=== PATIENT | male | born 1965 | race Caucasian/White ===

== ENCOUNTER 2023-06-17 14:38 | Inpatient (IN) | payer BC ==
[~2023-06-17] VITALS: Ht 172.7 cm; Wt 54.0 kg
[2023-06-17] VITALS (9 sets, daily range): BP systolic 98–114; BP diastolic 58–69; PULSE 88–115; RESP 16–27; TEMP 98.8; O2SAT 77–98
[~2023-06-17 14:38] MED LIST: rocuronium 10mg/ml inj IV ONE
[2023-06-17] MEDS: vancomycin/NS 1 GM ADD-VANTAGE 250 ML IV ONE (14:50)
[2023-06-17] MEDS: CefTRIAXone 2gm/D5W 50ml BAG 50 ML IV ONE (14:50)
[2023-06-17] MEDS: piperacillin/tazo 3.375gm/50ml 50 ML IV ONE (14:50)
[2023-06-17] MEDS: propofol 1000mg/100ml bottle 100 ML IV SCH ×2 (14:51→17:41)
[2023-06-17] MEDS: amiodarone/D5 360MG/200ML BAG 200 ML IV SCH (14:53)
[2023-06-17 15:08] LABS: BASOPHILS # (AUTO) 0.1 X10'3 (0-0.2); BASOPHILS % (AUTO) 0.3 % (0-1); EOSINOPHILS % (AUTO) 0.1 % (0-6); HEMATOCRIT 34.6 % (42.0-52.0); LYMPHOCYTES # (AUTO) 1.4 X10'3 (1.1-4.8); LYMPHOCYTES % (AUTO) 4.7 % (21-51); MEAN CORPUSCULAR HEMOGLOBIN 31.2 PG (27.0-31.0); MEAN CORPUSCULAR HGB CONC 31.8 g/dL (33.0-36.5); MEAN CORPUSCULAR VOLUME 97.8 FL (78-98); MEAN PLATELET VOLUME 8.2 FL (7.4-10.4); MONOCYTES # (AUTO) 2.1 X10'3 (0-0.9); MONOCYTES % (AUTO) 6.7 % (2-12); NEUTROPHILS # (AUTO) 26.9 X10'3 (1.8-7.7); NEUTROPHILS % (AUTO) 88.2 % (42-75); PLATELET COUNT 294 X10'3 (140-440); RED BLOOD COUNT 3.53 X10'6 (4.70-6.10); RED CELL DISTRIBUTION WIDTH 14.9 % (11.5-14.5)
[2023-06-17 15:13] LABS: WHITE BLOOD COUNT 30.5 X10'3 (4.5-11.0)
[2023-06-17 15:17] LABS: ABG BASE EXCESS -4.4 mmol/L (-2.0-2.0); ABG HCO3 23.3 mmol/L (22.0-26.0); ABG OXYGEN SATURATION 98.4 % (94-97); ABG PCO2 (T) 54.7 mmHg (35.0-48.0); ABG PH (T) 7.247 (7.340-7.440); ABG PO2 (T) 137.5 mmHg (75.0-100.0); ALLEN'S TEST POSITIVE; FCOHb 0.3 % (0.0-3.9); FHHb 1.6 % (0.0-5.0); FMetHb 0.6 % (0.0-1.5); FO2Hb 97.5 % (94-97); MODE VENT - AC; PEEP 10 cm H2O; RESPIRATORY RATE 16 b/min; TIDAL VOLUME 450 mL; TOTAL HEMOGLOBIN 11.8 G/dl (14.0-17.9)
[2023-06-17] MEDS ORDERED: propofol (Diprivan) 10mg/ml 100ml bottle IV ONE (15:21)
[2023-06-17] MEDS ORDERED: diltiazem 5mg/ml 5ml inj. IV ONE (15:21)
[2023-06-17 15:25] LABS: ALANINE AMINOTRANSFERASE 16 U/L (12-78); ALBUMIN 1.9 G/DL (3.4-5.0); ALBUMIN/GLOBULIN RATIO 0.4 (1.1-1.5); ALKALINE PHOSPHATASE 154 IU/L (46-116); ANION GAP 10 (8-16); ASPARTATE AMINO TRANSFERASE 24 U/L (10-37); BILIRUBIN,TOTAL 0.3 MG/DL (0.1-1.0); BLOOD UREA NITROGEN 65 MG/DL (7-18); BUN/CREATININE RATIO 16.6 (10.0-20.0); CALCIUM 8.3 MG/DL (8.5-10.1); CHLORIDE 103 MMOL/L (99-107); CREATININE 3.91 MG/DL (0.60-1.10); GLUCOSE 368 MG/DL (70-104); POTASSIUM 3.5 MMOL/L (3.5-5.1); SODIUM 140 MMOL/L (135-145); TOTAL PROTEIN 6.5 G/DL (6.4-8.2); eCRCL 17 ML/MIN; eGFR 16 ML/MIN
[2023-06-17 15:34] LABS: PRO BRAIN NATRIURETIC PEPTIDE 3350 PG/ML (0-125); TRIGLYCERIDES 137 MG/DL (20-135)
[2023-06-17 15:45] LABS: PLATELET ESTIMATE NORMAL; TOTAL CELLS COUNTED 100
[2023-06-17 15:46] LABS: POIKILOCYTOSIS FEW
[2023-06-17] MEDS: normal saline 1000ML IV soln IVB ONE ×2 (16:35→18:25)
[2023-06-17 16:36] LABS: BILIRUBIN,URINE NEGATIVE (Neg); CLARITY,URINE TURBID (Clear); COLOR,URINE YELLOW (Yellow); GLUCOSE, URINE NEGATIVE (Neg); KETONES,URINE NEGATIVE (Neg); LEUKOCYTE ESTERASE ,URINE LARGE (Neg); NITRITES, URINE NEGATIVE (Neg); OCCULT BLOOD,URINE MODERATE (Neg); PROTEIN,URINE >=300 mg/dl (Neg); UROBILINOGEN,URINE 0.2 E.U/dL (0.2-1.0)
[2023-06-17 16:37] LABS: MAGNESIUM 1.6 MG/DL (1.5-2.4)
[2023-06-17 16:39] LABS: UA COLLECTION TYPE FOLEY CATH
[2023-06-17 16:58] LABS: WBC,URINE TNTC /HPF (0-4)
[2023-06-17 17:04] LABS: YEAST MANY /HPF (NEGATIVE)
[2023-06-17 17:07] LABS: BACTERIA,URINE 4+ /HPF (Neg)
[2023-06-17 17:08] LABS: RBC,URINE 0-2 /HPF (0-2)
[2023-06-17 17:11] LABS: WBC CLUMPS,URINE MANY /HPF (NEGATIVE)
[2023-06-17 17:12] LABS: COARSE GRANULAR CAST 0-3 /LPF (NEGATIVE)
[2023-06-17 17:13] LABS: SQUAMOUS EPITHELIAL CELL,UR FEW /LPF (FEW); TRANSITIONAL EPI CELLS,URINE MODERATE /HPF
[2023-06-17] MEDS: NORepinephrine 8mg/ 250ml NS 250 ML IV ONE (17:42)
[2023-06-17] MEDS: NORepinephrine 8mg/ 250ml NS 250 ML IV SCH (17:42)
[2023-06-17] MEDS: normal saline 1000ml 1,000 ML IV SCH ×2 (18:35→19:53)
[2023-06-17] MEDS ORDERED: sodium phosphate inj. 30 MMOL in dextrose 5%-water 250 ML IV PRN (19:35)
[2023-06-17] MEDS ORDERED: morphine 4 MG/ML inj SYRINge IV PRN (19:35)
[2023-06-17] MEDS ORDERED: morphine 2 MG/ML inj. syringe IV PRN (19:35)
[2023-06-17] MEDS ORDERED: magnesium hydroxide 30ml (MOM) UD suspension PO PRN (19:35)
[2023-06-17] MEDS ORDERED: ipratropium/albuterol 3ml nebule NEB PRN (19:35)
[2023-06-17] MEDS ORDERED: Neutra Phos packet PO PRN (19:35)
[2023-06-17] MEDS ORDERED: acetaminophen 325mg tablet PO PRN ×2 (19:35)
[2023-06-17] MEDS ORDERED: sodium phosphate inj. 15 MMOL in dextrose 5%-water 250 ML IV PRN (19:35)
[2023-06-17] MEDS: WATER IV ONE (20:12)
[2023-06-17] MEDS: DEXTROSE 5% IV ONE (20:12)
[2023-06-17] MEDS: VORICONAZOLE IV ONE (20:12)
[2023-06-17] MEDS: cefepime 2g/NS 100ml ADVANTAGE 100 ML IV ONE (22:09)
[2023-06-17] MEDS: insulin Lispro (HumaLOG) vial - multi-dose SQ ONE (22:13)
[2023-06-17] MEDS: pantoprazole 40 MG vial IV ONE (23:19)
[2023-06-17 23:28] LABS: OXYGEN SATURATION (MIXED VEN) 60.1 % (60-80); PO2 MIXED VENOUS (TEMP COR) 34.3 mmHg (35-46)
[2023-06-18] VITALS (35 sets, daily range): BP systolic 83–133; BP diastolic 0–71; PULSE 70–105; RESP 18–32; O2SAT 92–96
[2023-06-18] MEDS: heparin, porcine 5000 units/ml vial SQ SCH (00:20)
[2023-06-18] MEDS ORDERED: DEXTROSE 15 GM of carb/4 tabs (each vial/BOTTLE has 4 tablets) PO PRN ×2 (03:15)
[2023-06-18 03:42] LABS: BASOPHILS # (AUTO) 0.1 X10'3 (0-0.2); BASOPHILS % (AUTO) 0.4 % (0-1); EOSINOPHILS # (AUTO) 0.1 X10'3 (0-0.9); EOSINOPHILS % (AUTO) 0.2 % (0-6); HEMATOCRIT 29.9 % (42.0-52.0); HEMOGLOBIN 9.6 g/dl (14.0-17.9); LYMPHOCYTES % (AUTO) 3.6 % (21-51); MEAN CORPUSCULAR HEMOGLOBIN 31.3 PG (27.0-31.0); MEAN CORPUSCULAR HGB CONC 32.2 g/dL (33.0-36.5); MEAN CORPUSCULAR VOLUME 97.1 FL (78-98); MEAN PLATELET VOLUME 8.5 FL (7.4-10.4); MONOCYTES # (AUTO) 1.3 X10'3 (0-0.9); MONOCYTES % (AUTO) 4.7 % (2-12); NEUTROPHILS # (AUTO) 25.4 X10'3 (1.8-7.7); NEUTROPHILS % (AUTO) 91.1 % (42-75); PLATELET COUNT 284 X10'3 (140-440); RED BLOOD COUNT 3.08 X10'6 (4.70-6.10)
[2023-06-18 03:49] LABS: WHITE BLOOD COUNT 27.8 X10'3 (4.5-11.0)
[2023-06-18] MEDS: normal saline 500ml IV soln 500 ML IV ONE (03:53)
[2023-06-18] MEDS: insulin Lispro (HumaLOG) vial - multi-dose SQ SCH (03:55)
[2023-06-18 03:56] LABS: ALANINE AMINOTRANSFERASE 18 U/L (12-78); ALBUMIN 1.8 G/DL (3.4-5.0); ALBUMIN/GLOBULIN RATIO 0.4 (1.1-1.5); ALKALINE PHOSPHATASE 159 IU/L (46-116); ANION GAP 17 (8-16); ASPARTATE AMINO TRANSFERASE 20 U/L (10-37); BILIRUBIN,TOTAL 0.3 MG/DL (0.1-1.0); BLOOD UREA NITROGEN 71 MG/DL (7-18); BUN/CREATININE RATIO 17.9 (10.0-20.0); CALCIUM 8.3 MG/DL (8.5-10.1); CHLORIDE 102 MMOL/L (99-107); CREATININE 3.97 MG/DL (0.60-1.10); MAGNESIUM 1.5 MG/DL (1.5-2.4); PHOSPHORUS 5.8 MG/DL (2.3-4.5); POTASSIUM 4.4 MMOL/L (3.5-5.1); SODIUM 138 MMOL/L (135-145); TOTAL CARBON DIOXIDE 19.5 MMOL/L (24-32); TOTAL PROTEIN 6.3 G/DL (6.4-8.2); TRIGLYCERIDES 282 MG/DL (20-135); eCRCL 18 ML/MIN; eGFR 16 ML/MIN
[2023-06-18] MEDS: insulin glargine (Lantus) pen - multi-dose SQ SCH (03:56)
[2023-06-18 03:58] LABS: ABG BASE EXCESS -6.6 mmol/L (-2.0-2.0); ABG HCO3 18.4 mmol/L (22.0-26.0); ABG OXYGEN SATURATION 95.3 % (94-97); ABG PCO2 (T) 36.5 mmHg (35.0-48.0); ABG PH (T) 7.326 (7.340-7.440); ABG PO2 (T) 87.2 mmHg (75.0-100.0); ALLEN'S TEST Modified; FCOHb 0.3 % (0.0-3.9); FHHb 4.7 % (0.0-5.0); FMetHb 0.3 % (0.0-1.5); FO2Hb 94.7 % (94-97); MODE CMV PRVC IT 0.9; PATIENT TEMPERATURE 38.2; PEEP 10 cm H2O; RESPIRATORY RATE 18 b/min; TIDAL VOLUME 500 mL; TOTAL HEMOGLOBIN 10.9 G/dl (14.0-17.9)
[2023-06-18] MEDS: MESSAGE TO PHARMACY PO ONE (03:59)
[2023-06-18 04:04] LABS: GLUCOSE 472 MG/DL (70-104)
[2023-06-18 04:09] LABS: HEMOGLOBIN A1C 7.4 % (4.5-6.2)
[2023-06-18] MEDS: pantoprazole 40MG/NS 100ML BAG 100 ML IV SCH (08:00)
[2023-06-18] MEDS: azithromycin/NS 500mg/250ml 250 ML IV SCH (08:00)
[2023-06-18] MEDS ORDERED: vancomycin/NS 1 GM ADD-VANTAGE 250 ML IV PRN (10:50)
[2023-06-18] MEDS: VANCOMYCIN LEVEL IV ONE (11:00)
[2023-06-18] MEDS ORDERED: FENTANYL-0.9 % NACL/PF 100 ML IV PRN (11:05)
[2023-06-18] MEDS ORDERED: ALB0.5UD NEB (11:14)
[2023-06-18] MEDS ORDERED: CHLO473M2 PO (11:14)
[2023-06-18] MEDS ORDERED: BALS60OI TOP (11:14)
[2023-06-18] MEDS ORDERED: FERR325T32 PO (11:17)
[2023-06-18] MEDS ORDERED: INSU200I SQ (11:17)
[2023-06-18] MEDS ORDERED: DILT30TA10 PO (11:17)
[2023-06-18] MEDS ORDERED: LANTUS SQ (11:17)
[2023-06-18] MEDS ORDERED: HEPA100D46 SQ (11:17)
[2023-06-18] MEDS ORDERED: SODI650T29 PO (11:19)
[2023-06-18] MEDS ORDERED: ATR0.5NEB IH (11:19)
[2023-06-18] MEDS ORDERED: LANS30CA56 PO (11:19)
[2023-06-18] MEDS ORDERED: THIA50TA10 PO (11:19)
[2023-06-18] MEDS ORDERED: PIPE3.3739 IV (11:20)
[2023-06-18] MEDS ORDERED: LORA-268 PO (11:21)
[2023-06-18 11:34] LABS: BILIRUBIN,URINE NEGATIVE (Neg); CLARITY,URINE TURBID (Clear); COLOR,URINE YELLOW (Yellow); GLUCOSE, URINE 100 mg/dl (Neg); KETONES,URINE NEGATIVE (Neg); LEUKOCYTE ESTERASE ,URINE MODERATE (Neg); NITRITES, URINE NEGATIVE (Neg); OCCULT BLOOD,URINE MODERATE (Neg); PROTEIN,URINE >=300 mg/dl (Neg); UROBILINOGEN,URINE 0.2 E.U/dL (0.2-1.0)
[2023-06-18 11:35] LABS: UA COLLECTION TYPE NON-SPECIFIED
[2023-06-18 12:04] LABS: TOTAL PROTEIN,URINE RANDOM 599.8 MG/DL
[2023-06-18 12:06] LABS: WBC,URINE TNTC /HPF (0-4)
[2023-06-18 12:07] LABS: WBC CLUMPS,URINE MANY /HPF (NEGATIVE)
[2023-06-18 12:12] LABS: RBC,URINE 20-50 /HPF (0-2)
[2023-06-18 12:13] LABS: BACTERIA,URINE 1+ /HPF (Neg)
[2023-06-18 12:14] LABS: SQUAMOUS EPITHELIAL CELL,UR FEW /LPF (FEW)
[2023-06-18] MEDS: fentaNYL 2,500 MCG in Normal Saline 250ml IV soln bag IV SCH (12:15)
[2023-06-18] MEDS: DEXTROSE 5% IV SCH (12:16)
[2023-06-18] MEDS: WATER IV SCH (12:16)
[2023-06-18] MEDS: VORICONAZOLE IV SCH (12:16)
[2023-06-18 12:30] LABS: VANCOMYCIN,RANDOM 22.3 ug/mL (20.0-30.0)
[2023-06-18 13:23] LABS: UA EOSINOPHILS NO EOS /HPF
[2023-06-18] MEDS ORDERED: acetaminophen 325mg/10.15ml oral unit dose solution PEG PRN ×2 (15:03)
[2023-06-18] MEDS ORDERED: DEXTROSE 15 GM of carb/4 tabs (each vial/BOTTLE has 4 tablets) PEG PRN ×2 (15:03→15:04)
[2023-06-18] MEDS: insulin regular, human U-100 3ml vial - multi-dose SQ SCH (21:56)
[2023-06-18] MEDS: cefepime 1GM/NS 100 ML IVPB IV SCH (22:00)
[2023-06-19] VITALS (36 sets, daily range): BP systolic 85–120; BP diastolic 50–71; PULSE 65–99; RESP 16–23; O2SAT 92–99
[2023-06-19 02:35] LABS: BASOPHILS % (AUTO) 0.2 % (0-1); EOSINOPHILS # (AUTO) 0.4 X10'3 (0-0.9); EOSINOPHILS % (AUTO) 1.9 % (0-6); HEMATOCRIT 28.1 % (42.0-52.0); HEMOGLOBIN 9.1 g/dl (14.0-17.9); LYMPHOCYTES # (AUTO) 1.2 X10'3 (1.1-4.8); LYMPHOCYTES % (AUTO) 6.1 % (21-51); MEAN CORPUSCULAR HEMOGLOBIN 31.3 PG (27.0-31.0); MEAN CORPUSCULAR HGB CONC 32.3 g/dL (33.0-36.5); MEAN CORPUSCULAR VOLUME 96.9 FL (78-98); MEAN PLATELET VOLUME 8.8 FL (7.4-10.4); MONOCYTES # (AUTO) 0.7 X10'3 (0-0.9); MONOCYTES % (AUTO) 3.3 % (2-12); NEUTROPHILS # (AUTO) 17.8 X10'3 (1.8-7.7); NEUTROPHILS % (AUTO) 88.5 % (42-75); PLATELET COUNT 270 X10'3 (140-440); RED CELL DISTRIBUTION WIDTH 15.2 % (11.5-14.5); WHITE BLOOD COUNT 20.2 X10'3 (4.5-11.0)
[2023-06-19] MEDS: VANCOMYCIN LEVEL IV SCH (03:00)
[2023-06-19 03:29] LABS: ALANINE AMINOTRANSFERASE 19 U/L (12-78); ALBUMIN 1.5 G/DL (3.4-5.0); ALBUMIN/GLOBULIN RATIO 0.3 (1.1-1.5); ALKALINE PHOSPHATASE 142 IU/L (46-116); ANION GAP 14 (8-16); ASPARTATE AMINO TRANSFERASE 17 U/L (10-37); BILIRUBIN,TOTAL 0.2 MG/DL (0.1-1.0); BLOOD UREA NITROGEN 73 MG/DL (7-18); BUN/CREATININE RATIO 17.3 (10.0-20.0); CALCIUM 8.5 MG/DL (8.5-10.1); CHLORIDE 106 MMOL/L (99-107); CREATININE 4.23 MG/DL (0.60-1.10); GLUCOSE 206 MG/DL (70-104); MAGNESIUM 1.5 MG/DL (1.5-2.4); PHOSPHORUS 5.4 MG/DL (2.3-4.5); POTASSIUM 3.6 MMOL/L (3.5-5.1); SODIUM 141 MMOL/L (135-145); TOTAL CARBON DIOXIDE 20.9 MMOL/L (24-32); TOTAL PROTEIN 5.8 G/DL (6.4-8.2); eCRCL 14 ML/MIN; eGFR 14 ML/MIN
[2023-06-19 03:43] LABS: ABG BASE EXCESS -8.3 mmol/L (-2.0-2.0); ABG HCO3 17.3 mmol/L (22.0-26.0); ABG PCO2 (T) 34.9 mmHg (35.0-48.0); ABG PO2 (T) 111.2 mmHg (75.0-100.0); ALLEN'S TEST Modified; FCOHb 0.2 % (0.0-3.9); FMetHb 0.2 % (0.0-1.5); FO2Hb 97.6 % (94-97); MODE CMV PRVC IT 0.9; PATIENT TEMPERATURE 36.5; PEEP 10 cm H2O; RESPIRATORY RATE 18 b/min; TIDAL VOLUME 500 mL; TOTAL HEMOGLOBIN 10.5 G/dl (14.0-17.9)
[2023-06-19] MEDS: FENTANYL 1000MCG/NS 100 ML BAG /PF IV PRN (14:34)
[2023-06-19] MEDS: dextrose 50%-water 50ml dispensing syringe IV PRN (22:46)
[2023-06-20] VITALS (37 sets, daily range): BP systolic 84–110; BP diastolic 46–61; PULSE 71–92; RESP 18–28; O2SAT 91–98
[2023-06-20 02:36] LABS: BASOPHILS # (AUTO) 0.1 X10'3 (0-0.2); BASOPHILS % (AUTO) 0.4 % (0-1); EOSINOPHILS # (AUTO) 0.7 X10'3 (0-0.9); EOSINOPHILS % (AUTO) 3.5 % (0-6); HEMATOCRIT 27.9 % (42.0-52.0); HEMOGLOBIN 8.9 g/dl (14.0-17.9); LYMPHOCYTES # (AUTO) 1.1 X10'3 (1.1-4.8); LYMPHOCYTES % (AUTO) 5.7 % (21-51); MEAN CORPUSCULAR HEMOGLOBIN 31.1 PG (27.0-31.0); MEAN CORPUSCULAR HGB CONC 31.8 g/dL (33.0-36.5); MEAN CORPUSCULAR VOLUME 97.7 FL (78-98); MEAN PLATELET VOLUME 9.4 FL (7.4-10.4); MONOCYTES # (AUTO) 0.8 X10'3 (0-0.9); MONOCYTES % (AUTO) 4.1 % (2-12); NEUTROPHILS # (AUTO) 16.5 X10'3 (1.8-7.7); NEUTROPHILS % (AUTO) 86.3 % (42-75); PLATELET COUNT 236 X10'3 (140-440); RED BLOOD COUNT 2.85 X10'6 (4.70-6.10); RED CELL DISTRIBUTION WIDTH 15.4 % (11.5-14.5); WHITE BLOOD COUNT 19.1 X10'3 (4.5-11.0)
[2023-06-20 03:00] LABS: ALANINE AMINOTRANSFERASE 13 U/L (12-78); ALBUMIN 1.4 G/DL (3.4-5.0); ALBUMIN/GLOBULIN RATIO 0.3 (1.1-1.5); ALKALINE PHOSPHATASE 148 IU/L (46-116); ANION GAP 15 (8-16); ASPARTATE AMINO TRANSFERASE 16 U/L (10-37); BILIRUBIN,TOTAL 0.2 MG/DL (0.1-1.0); BLOOD UREA NITROGEN 77 MG/DL (7-18); BUN/CREATININE RATIO 19.5 (10.0-20.0); CALCIUM 8.3 MG/DL (8.5-10.1); CHLORIDE 110 MMOL/L (99-107); CREATININE 3.95 MG/DL (0.60-1.10); GLUCOSE 131 MG/DL (70-104); MAGNESIUM 1.6 MG/DL (1.5-2.4); PHOSPHORUS 5.3 MG/DL (2.3-4.5); POTASSIUM 3.8 MMOL/L (3.5-5.1); SODIUM 145 MMOL/L (135-145); TOTAL CARBON DIOXIDE 19.6 MMOL/L (24-32); TOTAL PROTEIN 5.7 G/DL (6.4-8.2); VANCOMYCIN,RANDOM 13.8 ug/mL (20.0-30.0); eCRCL 18 ML/MIN; eGFR 16 ML/MIN
[2023-06-20 03:46] LABS: ABG BASE EXCESS -10.9 mmol/L (-2.0-2.0); ABG HCO3 15.3 mmol/L (22.0-26.0); ABG OXYGEN SATURATION 94.5 % (94-97); ABG PCO2 (T) 34.8 mmHg (35.0-48.0); ABG PH (T) 7.259 (7.340-7.440); ABG PO2 (T) 76.9 mmHg (75.0-100.0); FCOHb 0.2 % (0.0-3.9); FHHb 5.5 % (0.0-5.0); FMetHb 0.4 % (0.0-1.5); FO2Hb 93.9 % (94-97); MODE VENT - PRVC; PATIENT TEMPERATURE 36.9; PEEP 10 cm H2O; RESPIRATORY RATE 18 b/min; TIDAL VOLUME 500 mL; TOTAL HEMOGLOBIN 10.1 G/dl (14.0-17.9)
[2023-06-20] MEDS: vancomycin/NS 1 GM ADD-VANTAGE 250 ML IV ONE (07:53)
[2023-06-20] MEDS: amiodarone 200mg tablet PO ONE (10:51)
[2023-06-20] MEDS: amiodarone 200mg tablet PO SCH (20:49)
[2023-06-21] VITALS (37 sets, daily range): BP systolic 85–143; BP diastolic 46–63; PULSE 66–94; RESP 10–27; O2SAT 93–98
[2023-06-21 03:11] LABS: BASOPHILS % (AUTO) 0.3 % (0-1); EOSINOPHILS # (AUTO) 0.6 X10'3 (0-0.9); EOSINOPHILS % (AUTO) 4.1 % (0-6); HEMATOCRIT 27.8 % (42.0-52.0); HEMOGLOBIN 8.7 g/dl (14.0-17.9); LYMPHOCYTES # (AUTO) 0.8 X10'3 (1.1-4.8); LYMPHOCYTES % (AUTO) 5.4 % (21-51); MEAN CORPUSCULAR HEMOGLOBIN 31.2 PG (27.0-31.0); MEAN CORPUSCULAR HGB CONC 31.3 g/dL (33.0-36.5); MEAN CORPUSCULAR VOLUME 99.7 FL (78-98); MEAN PLATELET VOLUME 9.5 FL (7.4-10.4); MONOCYTES # (AUTO) 0.8 X10'3 (0-0.9); MONOCYTES % (AUTO) 5.4 % (2-12); NEUTROPHILS # (AUTO) 13.2 X10'3 (1.8-7.7); NEUTROPHILS % (AUTO) 84.8 % (42-75); PLATELET COUNT 245 X10'3 (140-440); RED BLOOD COUNT 2.79 X10'6 (4.70-6.10); RED CELL DISTRIBUTION WIDTH 15.8 % (11.5-14.5); WHITE BLOOD COUNT 15.6 X10'3 (4.5-11.0)
[2023-06-21 03:21] LABS: ALANINE AMINOTRANSFERASE 15 U/L (12-78); ALBUMIN 1.3 G/DL (3.4-5.0); ALBUMIN/GLOBULIN RATIO 0.3 (1.1-1.5); ALKALINE PHOSPHATASE 200 IU/L (46-116); ANION GAP 15 (8-16); ASPARTATE AMINO TRANSFERASE 16 U/L (10-37); BILIRUBIN,TOTAL 0.2 MG/DL (0.1-1.0); BLOOD UREA NITROGEN 85 MG/DL (7-18); CALCIUM 8.5 MG/DL (8.5-10.1); CHLORIDE 113 MMOL/L (99-107); CREATININE 4.05 MG/DL (0.60-1.10); GLUCOSE 192 MG/DL (70-104); MAGNESIUM 1.7 MG/DL (1.5-2.4); PHOSPHORUS 4.8 MG/DL (2.3-4.5); POTASSIUM 3.9 MMOL/L (3.5-5.1); PREALBUMIN 7.7 MG/DL (19-36); SODIUM 145 MMOL/L (135-145); TOTAL CARBON DIOXIDE 17.5 MMOL/L (24-32); TOTAL PROTEIN 5.7 G/DL (6.4-8.2); VANCOMYCIN,RANDOM 21.6 ug/mL (20.0-30.0); eCRCL 17 ML/MIN; eGFR 15 ML/MIN
[2023-06-21 03:21] LABS: ABG BASE EXCESS -12.2 mmol/L (-2.0-2.0); ABG HCO3 15.1 mmol/L (22.0-26.0); ABG OXYGEN SATURATION 94.8 % (94-97); ABG PH (T) 7.195 (7.340-7.440); ABG PO2 (T) 75.5 mmHg (75.0-100.0); FCOHb 0.3 % (0.0-3.9); FHHb 5.2 % (0.0-5.0); FMetHb 0.1 % (0.0-1.5); FO2Hb 94.4 % (94-97); MODE VENT - PRVC; PATIENT TEMPERATURE 36.9; PEEP 8 cm H2O; RESPIRATORY RATE 18 b/min; TIDAL VOLUME 500 mL; TOTAL HEMOGLOBIN 9.9 G/dl (14.0-17.9)
[2023-06-21] MEDS: ondansetron/PF 4mg/2ml inj IV PRN (19:29)
[2023-06-21] MEDS: dexmedetomidin/NS 400mcg/100ml 100 ML IV PRN (20:37)
[2023-06-21] MEDS: fentaNYL/PF 50MCG/1 ML 2ML syringe IV PRN (20:50)
[2023-06-22] VITALS (38 sets, daily range): BP systolic 89–121; BP diastolic 47–63; PULSE 61–83; RESP 12–28; O2SAT 89–98
[2023-06-22 03:17] LABS: BASOPHILS % (AUTO) 0.5 % (0-1); EOSINOPHILS # (AUTO) 0.4 X10'3 (0-0.9); EOSINOPHILS % (AUTO) 3.7 % (0-6); HEMATOCRIT 25.1 % (42.0-52.0); HEMOGLOBIN 7.9 g/dl (14.0-17.9); LYMPHOCYTES # (AUTO) 0.6 X10'3 (1.1-4.8); LYMPHOCYTES % (AUTO) 6.3 % (21-51); MEAN CORPUSCULAR HEMOGLOBIN 31.2 PG (27.0-31.0); MEAN CORPUSCULAR HGB CONC 31.4 g/dL (33.0-36.5); MEAN CORPUSCULAR VOLUME 99.2 FL (78-98); MEAN PLATELET VOLUME 9.8 FL (7.4-10.4); MONOCYTES # (AUTO) 0.7 X10'3 (0-0.9); MONOCYTES % (AUTO) 6.7 % (2-12); NEUTROPHILS # (AUTO) 8.3 X10'3 (1.8-7.7); NEUTROPHILS % (AUTO) 82.8 % (42-75); PLATELET COUNT 232 X10'3 (140-440); RED BLOOD COUNT 2.53 X10'6 (4.70-6.10); RED CELL DISTRIBUTION WIDTH 15.9 % (11.5-14.5); WHITE BLOOD COUNT 10.1 X10'3 (4.5-11.0)
[2023-06-22 03:23] LABS: ALANINE AMINOTRANSFERASE 13 U/L (12-78); ALBUMIN 1.1 G/DL (3.4-5.0); ALBUMIN/GLOBULIN RATIO 0.3 (1.1-1.5); ALKALINE PHOSPHATASE 203 IU/L (46-116); ANION GAP 15 (8-16); ASPARTATE AMINO TRANSFERASE 14 U/L (10-37); BILIRUBIN,TOTAL 0.2 MG/DL (0.1-1.0); BLOOD UREA NITROGEN 89 MG/DL (7-18); BUN/CREATININE RATIO 21.8 (10.0-20.0); CALCIUM 8.5 MG/DL (8.5-10.1); CHLORIDE 116 MMOL/L (99-107); CREATININE 4.08 MG/DL (0.60-1.10); GLUCOSE 342 MG/DL (70-104); MAGNESIUM 1.8 MG/DL (1.5-2.4); PHOSPHORUS 4.4 MG/DL (2.3-4.5); POTASSIUM 4.1 MMOL/L (3.5-5.1); SODIUM 147 MMOL/L (135-145); TOTAL CARBON DIOXIDE 16.2 MMOL/L (24-32); TOTAL PROTEIN 5.1 G/DL (6.4-8.2); VANCOMYCIN,RANDOM 18.5 ug/mL (20.0-30.0); eCRCL 19 ML/MIN; eGFR 15 ML/MIN
[2023-06-22 05:07] LABS: ABG BASE EXCESS -11.7 mmol/L (-2.0-2.0); ABG HCO3 14.3 mmol/L (22.0-26.0); ABG OXYGEN SATURATION 97.6 % (94-97); ABG PCO2 (T) 32.1 mmHg (35.0-48.0); ABG PH (T) 7.265 (7.340-7.440); ABG PO2 (T) 102.7 mmHg (75.0-100.0); ALLEN'S TEST Modified; FCOHb 0.3 % (0.0-3.9); FHHb 2.4 % (0.0-5.0); FMetHb 0.3 % (0.0-1.5); MODE CPAP; PATIENT TEMPERATURE 36.8; PEEP 5 cm H2O; TOTAL HEMOGLOBIN 9.2 G/dl (14.0-17.9)
[2023-06-22] MEDS: rocuronium 10mg/ml inj IV ONE (08:53)
[2023-06-22] MEDS: LORazepam 2 mg/ml vial IV ONE (08:53)
[2023-06-22 13:48] LABS: ASPERGILLUS GALACTOMANNAN AG 0.1 Index (0.00-0.49)
[2023-06-23] VITALS (39 sets, daily range): BP systolic 91–137; BP diastolic 48–79; PULSE 68–106; RESP 20–35; O2SAT 92–99
[2023-06-23 03:07] LABS: BASOPHILS # (AUTO) 0.1 X10'3 (0-0.2); BASOPHILS % (AUTO) 1.1 % (0-1); EOSINOPHILS # (AUTO) 0.6 X10'3 (0-0.9); EOSINOPHILS % (AUTO) 7.8 % (0-6); HEMATOCRIT 27.8 % (42.0-52.0); HEMOGLOBIN 8.9 g/dl (14.0-17.9); LYMPHOCYTES # (AUTO) 1.1 X10'3 (1.1-4.8); LYMPHOCYTES % (AUTO) 15.2 % (21-51); MEAN CORPUSCULAR HEMOGLOBIN 31.4 PG (27.0-31.0); MEAN CORPUSCULAR HGB CONC 32.1 g/dL (33.0-36.5); MEAN PLATELET VOLUME 9.4 FL (7.4-10.4); MONOCYTES # (AUTO) 0.5 X10'3 (0-0.9); MONOCYTES % (AUTO) 7.4 % (2-12); NEUTROPHILS # (AUTO) 5.1 X10'3 (1.8-7.7); NEUTROPHILS % (AUTO) 68.5 % (42-75); PLATELET COUNT 287 X10'3 (140-440); RED BLOOD COUNT 2.83 X10'6 (4.70-6.10); RED CELL DISTRIBUTION WIDTH 15.4 % (11.5-14.5); WHITE BLOOD COUNT 7.4 X10'3 (4.5-11.0)
[2023-06-23 03:13] LABS: ALANINE AMINOTRANSFERASE 16 U/L (12-78); ALBUMIN 1.3 G/DL (3.4-5.0); ALBUMIN/GLOBULIN RATIO 0.3 (1.1-1.5); ALKALINE PHOSPHATASE 238 IU/L (46-116); ANION GAP 13 (8-16); ASPARTATE AMINO TRANSFERASE 13 U/L (10-37); BILIRUBIN,TOTAL 0.4 MG/DL (0.1-1.0); BLOOD UREA NITROGEN 92 MG/DL (7-18); BUN/CREATININE RATIO 21.9 (10.0-20.0); CALCIUM 8.6 MG/DL (8.5-10.1); CHLORIDE 117 MMOL/L (99-107); GLUCOSE 385 MG/DL (70-104); MAGNESIUM 1.8 MG/DL (1.5-2.4); PHOSPHORUS 3.9 MG/DL (2.3-4.5); POTASSIUM 4.5 MMOL/L (3.5-5.1); SODIUM 145 MMOL/L (135-145); TOTAL CARBON DIOXIDE 15.3 MMOL/L (24-32); TOTAL PROTEIN 6.5 G/DL (6.4-8.2); TRIGLYCERIDES 175 MG/DL (20-135); VANCOMYCIN,RANDOM 17.1 ug/mL (20.0-30.0); eCRCL 18 ML/MIN; eGFR 15 ML/MIN
[2023-06-23 04:13] LABS: ABG BASE EXCESS -12.1 mmol/L (-2.0-2.0); ABG HCO3 14.3 mmol/L (22.0-26.0); ABG OXYGEN SATURATION 93.4 % (94-97); ABG PCO2 (T) 34.9 mmHg (35.0-48.0); ABG PH (T) 7.233 (7.340-7.440); ABG PO2 (T) 70.6 mmHg (75.0-100.0); ALLEN'S TEST Modified; FCOHb 0.3 % (0.0-3.9); FHHb 6.6 % (0.0-5.0); FMetHb 0.3 % (0.0-1.5); FO2Hb 92.8 % (94-97); MODE CMV PRVC IT 0.9; PATIENT TEMPERATURE 37.1; PEEP 5 cm H2O; RESPIRATORY RATE 24 b/min; TIDAL VOLUME 500 mL; TOTAL HEMOGLOBIN 8.9 G/dl (14.0-17.9)
[2023-06-23] MEDS: metoclopramide 5mg/5ml oral solution PEG SCH (08:00)
[2023-06-23] MEDS ORDERED: erythromycin ethylsuccinate 200mg/5ml 200ml bottle PEG SCH (11:00)
[2023-06-23] MEDS ORDERED: magnesium hydroxide 30ml (MOM) UD suspension PEG PRN (11:16)
[2023-06-23] MEDS: amiodarone 200mg tablet PEG SCH (20:04)
[2023-06-24] VITALS (36 sets, daily range): BP systolic 81–131; BP diastolic 44–70; PULSE 77–94; RESP 20–31; O2SAT 96–99
[2023-06-24] MEDS: dextrose 50%-water 50ml dispensing syringe IV PRN (02:07)
[2023-06-24 02:45] LABS: BASOPHILS % (AUTO) 0.7 % (0-1); EOSINOPHILS # (AUTO) 0.6 X10'3 (0-0.9); HEMATOCRIT 25.9 % (42.0-52.0); HEMOGLOBIN 8.3 g/dl (14.0-17.9); LYMPHOCYTES # (AUTO) 1.1 X10'3 (1.1-4.8); LYMPHOCYTES % (AUTO) 17.8 % (21-51); MEAN CORPUSCULAR HEMOGLOBIN 31.2 PG (27.0-31.0); MEAN CORPUSCULAR VOLUME 97.4 FL (78-98); MEAN PLATELET VOLUME 9.1 FL (7.4-10.4); MONOCYTES # (AUTO) 0.8 X10'3 (0-0.9); MONOCYTES % (AUTO) 12.1 % (2-12); NEUTROPHILS # (AUTO) 3.9 X10'3 (1.8-7.7); NEUTROPHILS % (AUTO) 60.4 % (42-75); PLATELET COUNT 292 X10'3 (140-440); RED BLOOD COUNT 2.66 X10'6 (4.70-6.10); RED CELL DISTRIBUTION WIDTH 15.1 % (11.5-14.5); WHITE BLOOD COUNT 6.4 X10'3 (4.5-11.0)
[2023-06-24 02:55] LABS: ALANINE AMINOTRANSFERASE 17 U/L (12-78); ALBUMIN 1.3 G/DL (3.4-5.0); ALBUMIN/GLOBULIN RATIO 0.3 (1.1-1.5); ALKALINE PHOSPHATASE 219 IU/L (46-116); ANION GAP 11 (8-16); ASPARTATE AMINO TRANSFERASE 21 U/L (10-37); BILIRUBIN,TOTAL 0.3 MG/DL (0.1-1.0); BLOOD UREA NITROGEN 101 MG/DL (7-18); BUN/CREATININE RATIO 24.9 (10.0-20.0); CALCIUM 9.1 MG/DL (8.5-10.1); CHLORIDE 121 MMOL/L (99-107); CREATININE 4.05 MG/DL (0.60-1.10); PHOSPHORUS 3.3 MG/DL (2.3-4.5); POTASSIUM 4.2 MMOL/L (3.5-5.1); SODIUM 151 MMOL/L (135-145); TOTAL CARBON DIOXIDE 19.2 MMOL/L (24-32); TOTAL PROTEIN 5.8 G/DL (6.4-8.2); VANCOMYCIN,RANDOM 15.7 ug/mL (20.0-30.0); eCRCL 17 ML/MIN; eGFR 15 ML/MIN
[2023-06-24 03:02] LABS: GLUCOSE 44 MG/DL (70-104)
[2023-06-24 03:48] LABS: ABG BASE EXCESS -8.8 mmol/L (-2.0-2.0); ABG HCO3 16.4 mmol/L (22.0-26.0); ABG OXYGEN SATURATION 96.9 % (94-97); ABG PCO2 (T) 32.5 mmHg (35.0-48.0); ABG PO2 (T) 86.1 mmHg (75.0-100.0); ALLEN'S TEST Modified; FCOHb 0.3 % (0.0-3.9); FHHb 3.1 % (0.0-5.0); FMetHb 0.3 % (0.0-1.5); FO2Hb 96.3 % (94-97); PATIENT TEMPERATURE 36.8; PEEP 5 cm H2O; RESPIRATORY RATE 24 b/min; TIDAL VOLUME 500 mL; TOTAL HEMOGLOBIN 9.1 G/dl (14.0-17.9)
[2023-06-24] MEDS: normal saline 1000ml 1,000 ML IV SCH (12:00)
[2023-06-24] MEDS ORDERED: propofol 1000mg/100ml bottle 100 ML IV SCH (18:00)
[2023-06-24] MEDS ORDERED: FENTANYL-0.9 % NACL/PF 100 ML IV PRN (18:00)
[2023-06-24] MEDS: propofol 1000mg/100ml bottle 100 ML IV SCH (18:38)
[2023-06-24] MEDS: FENTANYL-0.9 % NACL/PF 100 ML IV PRN (18:41)
[2023-06-25] VITALS (35 sets, daily range): BP systolic 93–130; BP diastolic 52–73; PULSE 75–97; RESP 19–32; O2SAT 90–99
[2023-06-25 03:08] LABS: BASOPHILS # (AUTO) 0.1 X10'3 (0-0.2); BASOPHILS % (AUTO) 1.1 % (0-1); EOSINOPHILS # (AUTO) 0.5 X10'3 (0-0.9); EOSINOPHILS % (AUTO) 6.7 % (0-6); HEMATOCRIT 24.8 % (42.0-52.0); LYMPHOCYTES % (AUTO) 14.9 % (21-51); MEAN CORPUSCULAR HEMOGLOBIN 31.3 PG (27.0-31.0); MEAN CORPUSCULAR HGB CONC 32.2 g/dL (33.0-36.5); MEAN CORPUSCULAR VOLUME 97.3 FL (78-98); MEAN PLATELET VOLUME 9.4 FL (7.4-10.4); MONOCYTES # (AUTO) 0.5 X10'3 (0-0.9); NEUTROPHILS # (AUTO) 4.9 X10'3 (1.8-7.7); NEUTROPHILS % (AUTO) 70.3 % (42-75); PLATELET COUNT 305 X10'3 (140-440); RED BLOOD COUNT 2.55 X10'6 (4.70-6.10); WHITE BLOOD COUNT 6.9 X10'3 (4.5-11.0)
[2023-06-25 03:23] LABS: ALANINE AMINOTRANSFERASE 17 U/L (12-78); ALBUMIN 1.2 G/DL (3.4-5.0); ALBUMIN/GLOBULIN RATIO 0.3 (1.1-1.5); ALKALINE PHOSPHATASE 266 IU/L (46-116); ANION GAP 10 (8-16); ASPARTATE AMINO TRANSFERASE 15 U/L (10-37); BILIRUBIN,TOTAL 0.3 MG/DL (0.1-1.0); BLOOD UREA NITROGEN 98 MG/DL (7-18); BUN/CREATININE RATIO 26.1 (10.0-20.0); CALCIUM 8.9 MG/DL (8.5-10.1); CHLORIDE 119 MMOL/L (99-107); CREATININE 3.75 MG/DL (0.60-1.10); GLUCOSE 240 MG/DL (70-104); PHOSPHORUS 3.3 MG/DL (2.3-4.5); POTASSIUM 4.6 MMOL/L (3.5-5.1); SODIUM 147 MMOL/L (135-145); TOTAL CARBON DIOXIDE 18.2 MMOL/L (24-32); TOTAL PROTEIN 5.6 G/DL (6.4-8.2); TRIGLYCERIDES 119 MG/DL (20-135); VANCOMYCIN,RANDOM 12.5 ug/mL (20.0-30.0); eCRCL 18 ML/MIN; eGFR 17 ML/MIN
[2023-06-25] MEDS: vancomycin/NS 1 GM ADD-VANTAGE 250 ML X 1 DOSE IV ONE (10:37)
[2023-06-25] MEDS: acetylcysteine 200 MG/ml 4ml vial INH SCH (17:05)
[2023-06-25] MEDS: ipratropium/albuterol 3ml nebule NEB SCH (17:13)
[2023-06-26] VITALS (61 sets, daily range): BP systolic 61–137; BP diastolic 36–79; PULSE 66–101; RESP 18–36; O2SAT 87–100
[2023-06-26 03:33] LABS: BASOPHILS # (AUTO) 0.1 X10'3 (0-0.2); BASOPHILS % (AUTO) 0.6 % (0-1); EOSINOPHILS # (AUTO) 0.5 X10'3 (0-0.9); HEMATOCRIT 25.9 % (42.0-52.0); HEMOGLOBIN 8.1 g/dl (14.0-17.9); LYMPHOCYTES # (AUTO) 1.1 X10'3 (1.1-4.8); LYMPHOCYTES % (AUTO) 9.4 % (21-51); MEAN CORPUSCULAR HEMOGLOBIN 30.5 PG (27.0-31.0); MEAN CORPUSCULAR HGB CONC 31.3 g/dL (33.0-36.5); MEAN CORPUSCULAR VOLUME 97.3 FL (78-98); MEAN PLATELET VOLUME 9.3 FL (7.4-10.4); MONOCYTES # (AUTO) 0.7 X10'3 (0-0.9); MONOCYTES % (AUTO) 6.1 % (2-12); NEUTROPHILS # (AUTO) 9.4 X10'3 (1.8-7.7); NEUTROPHILS % (AUTO) 79.9 % (42-75); PLATELET COUNT 398 X10'3 (140-440); RED BLOOD COUNT 2.66 X10'6 (4.70-6.10); RED CELL DISTRIBUTION WIDTH 15.3 % (11.5-14.5); WHITE BLOOD COUNT 11.8 X10'3 (4.5-11.0)
[2023-06-26 04:02] LABS: ALANINE AMINOTRANSFERASE 17 U/L (12-78); ALBUMIN 1.4 G/DL (3.4-5.0); ALBUMIN/GLOBULIN RATIO 0.3 (1.1-1.5); ALKALINE PHOSPHATASE 251 IU/L (46-116); ANION GAP 15 (8-16); ASPARTATE AMINO TRANSFERASE 16 U/L (10-37); BILIRUBIN,TOTAL 0.4 MG/DL (0.1-1.0); BLOOD UREA NITROGEN 103 MG/DL (7-18); BUN/CREATININE RATIO 28.5 (10.0-20.0); CALCIUM 8.9 MG/DL (8.5-10.1); CREATININE 3.62 MG/DL (0.60-1.10); GLUCOSE 385 MG/DL (70-104); POTASSIUM 4.9 MMOL/L (3.5-5.1); SODIUM 148 MMOL/L (135-145); TOTAL CARBON DIOXIDE 16.1 MMOL/L (24-32); TOTAL PROTEIN 6.2 G/DL (6.4-8.2); eCRCL 21 ML/MIN; eGFR 17 ML/MIN
[2023-06-26 04:03] LABS: PHOSPHORUS 3.3 MG/DL (2.3-4.5); TRIGLYCERIDES 157 MG/DL (20-135); VANCOMYCIN,RANDOM 22.5 ug/mL (20.0-30.0)
[2023-06-26 04:31] LABS: CHLORIDE 117 MMOL/L (99-107)
[2023-06-26] MEDS: propofol 1000mg/100ml bottle 100 ML IV ONE (09:27)
[2023-06-26] MEDS: NORepinephrine 8mg/ 250ml NS 250 ML IV SCH (11:01)
[2023-06-26] MEDS: normal saline 1000ml 1,000 ML IV ONE ×2 (11:06→11:07)
[2023-06-26 11:34] LABS: ABG BASE EXCESS -9.7 mmol/L (-2.0-2.0); ABG HCO3 15.6 mmol/L (22.0-26.0); ABG OXYGEN SATURATION 95.4 % (94-97); ABG PCO2 (T) 30.4 mmHg (35.0-48.0); ABG PH (T) 7.323 (7.340-7.440); ABG PO2 (T) 75.6 mmHg (75.0-100.0); ALLEN'S TEST POSITIVE; FCOHb 0.3 % (0.0-3.9); FHHb 4.6 % (0.0-5.0); FMetHb 0.3 % (0.0-1.5); FO2Hb 94.8 % (94-97); MODE VENT - PRVC; PATIENT TEMPERATURE 35.9; PEEP 5 cm H2O; RESPIRATORY RATE 24 b/min; TIDAL VOLUME 500 mL; TOTAL HEMOGLOBIN 8.7 G/dl (14.0-17.9)
[2023-06-26] MEDS: fentaNYL/PF 50MCG/1 ML 2ML syringe IV ONE (11:34)
[2023-06-26] MEDS ORDERED: propofol 10mg/ml 20ml vial IV PRN (14:30)
[2023-06-26] MEDS: propofol 1000mg/100ml bottle 100 ML IV SCH (14:45)
[2023-06-26] MEDS: FENTANYL-0.9 % NACL/PF 100 ML IV PRN (14:55)
[2023-06-27] VITALS (48 sets, daily range): BP systolic 74–127; BP diastolic 45–71; PULSE 59–98; RESP 23–27; O2SAT 95–99
[2023-06-27 02:34] LABS: BASOPHILS # (AUTO) 0.1 X10'3 (0-0.2); BASOPHILS % (AUTO) 0.5 % (0-1); EOSINOPHILS # (AUTO) 0.7 X10'3 (0-0.9); EOSINOPHILS % (AUTO) 4.1 % (0-6); HEMATOCRIT 24.2 % (42.0-52.0); HEMOGLOBIN 7.5 g/dl (14.0-17.9); LYMPHOCYTES # (AUTO) 1.4 X10'3 (1.1-4.8); LYMPHOCYTES % (AUTO) 8.7 % (21-51); MEAN CORPUSCULAR HEMOGLOBIN 30.5 PG (27.0-31.0); MEAN CORPUSCULAR VOLUME 98.4 FL (78-98); MEAN PLATELET VOLUME 9.4 FL (7.4-10.4); MONOCYTES # (AUTO) 0.8 X10'3 (0-0.9); MONOCYTES % (AUTO) 4.9 % (2-12); NEUTROPHILS # (AUTO) 13.4 X10'3 (1.8-7.7); NEUTROPHILS % (AUTO) 81.8 % (42-75); PLATELET COUNT 416 X10'3 (140-440); RED BLOOD COUNT 2.46 X10'6 (4.70-6.10); RED CELL DISTRIBUTION WIDTH 15.1 % (11.5-14.5); WHITE BLOOD COUNT 16.4 X10'3 (4.5-11.0)
[2023-06-27 02:51] LABS: ALANINE AMINOTRANSFERASE 15 U/L (12-78); ALBUMIN 1.3 G/DL (3.4-5.0); ALBUMIN/GLOBULIN RATIO 0.3 (1.1-1.5); ALKALINE PHOSPHATASE 203 IU/L (46-116); ANION GAP 9 (8-16); ASPARTATE AMINO TRANSFERASE 9 U/L (10-37); BILIRUBIN,TOTAL 0.2 MG/DL (0.1-1.0); BLOOD UREA NITROGEN 93 MG/DL (7-18); BUN/CREATININE RATIO 30.6 (10.0-20.0); CALCIUM 8.6 MG/DL (8.5-10.1); CHLORIDE 120 MMOL/L (99-107); CREATININE 3.04 MG/DL (0.60-1.10); GLUCOSE 61 MG/DL (70-104); MAGNESIUM 2.1 MG/DL (1.5-2.4); PHOSPHORUS 3.7 MG/DL (2.3-4.5); POTASSIUM 4.3 MMOL/L (3.5-5.1); SODIUM 148 MMOL/L (135-145); TOTAL CARBON DIOXIDE 18.8 MMOL/L (24-32); TOTAL PROTEIN 5.8 G/DL (6.4-8.2); VANCOMYCIN,TROUGH 17.4 ug/mL (10.0-20.0); eCRCL 25 ML/MIN; eGFR 21 ML/MIN
[2023-06-27 03:41] LABS: ABG BASE EXCESS -9.8 mmol/L (-2.0-2.0); ABG HCO3 15.5 mmol/L (22.0-26.0); ABG OXYGEN SATURATION 90.8 % (94-97); ABG PCO2 (T) 30.1 mmHg (35.0-48.0); ABG PH (T) 7.325 (7.340-7.440); ABG PO2 (T) 58.7 mmHg (75.0-100.0); ALLEN'S TEST Modified; FCOHb 0.3 % (0.0-3.9); FHHb 9.2 % (0.0-5.0); FO2Hb 90.5 % (94-97); MODE Vent-AC PRVC; PEEP 5 cm H2O; RESPIRATORY RATE 24 b/min; TIDAL VOLUME 500 mL; TOTAL HEMOGLOBIN 8.3 G/dl (14.0-17.9)
[2023-06-27] MEDS: vancomycin inj 500 MG in normal saline 100ml IV soln 100 ML IV SCH (09:21)
[2023-06-27] MEDS: LIDOcaine 1%/PF 5ML 10 MG/ML VIAL ONE ×2 (15:34→16:09)
[2023-06-27] MEDS: mineral oil/petrolatum ophthal oint EACHEYE SCH (19:55)
[2023-06-28] VITALS (52 sets, daily range): BP systolic 89–115; BP diastolic 46–61; PULSE 61–71; RESP 13–31; O2SAT 93–98
[2023-06-28 03:28] LABS: ABG BASE EXCESS -12.4 mmol/L (-2.0-2.0); ABG HCO3 13.1 mmol/L (22.0-26.0); ABG OXYGEN SATURATION 95.5 % (94-97); ABG PCO2 (T) 27.7 mmHg (35.0-48.0); ABG PH (T) 7.289 (7.340-7.440); ABG PO2 (T) 79.5 mmHg (75.0-100.0); ALLEN'S TEST Modified; FCOHb 0.3 % (0.0-3.9); FHHb 4.5 % (0.0-5.0); FMetHb 0.6 % (0.0-1.5); FO2Hb 94.6 % (94-97); MODE Vent-AC/PRVC; PATIENT TEMPERATURE 36.4; PEEP 5 cm H2O; RESPIRATORY RATE 24 b/min; TIDAL VOLUME 500 mL; TOTAL HEMOGLOBIN 8.4 G/dl (14.0-17.9)
[2023-06-28 03:36] LABS: BASOPHILS # (AUTO) 0.1 X10'3 (0-0.2); BASOPHILS % (AUTO) 0.4 % (0-1); EOSINOPHILS # (AUTO) 0.5 X10'3 (0-0.9); EOSINOPHILS % (AUTO) 4.2 % (0-6); HEMATOCRIT 23.9 % (42.0-52.0); HEMOGLOBIN 7.4 g/dl (14.0-17.9); LYMPHOCYTES # (AUTO) 1.3 X10'3 (1.1-4.8); LYMPHOCYTES % (AUTO) 11.4 % (21-51); MEAN CORPUSCULAR HEMOGLOBIN 30.9 PG (27.0-31.0); MEAN CORPUSCULAR HGB CONC 30.9 g/dL (33.0-36.5); MEAN PLATELET VOLUME 9.7 FL (7.4-10.4); MONOCYTES # (AUTO) 0.5 X10'3 (0-0.9); MONOCYTES % (AUTO) 4.7 % (2-12); NEUTROPHILS # (AUTO) 8.9 X10'3 (1.8-7.7); NEUTROPHILS % (AUTO) 79.3 % (42-75); PLATELET COUNT 416 X10'3 (140-440); RED BLOOD COUNT 2.39 X10'6 (4.70-6.10); RED CELL DISTRIBUTION WIDTH 15.1 % (11.5-14.5); WHITE BLOOD COUNT 11.3 X10'3 (4.5-11.0)
[2023-06-28 03:53] LABS: ANION GAP 8 (8-16); BLOOD UREA NITROGEN 94 MG/DL (7-18); BUN/CREATININE RATIO 30.8 (10.0-20.0); CHLORIDE 117 MMOL/L (99-107); CREATININE 3.05 MG/DL (0.60-1.10); GLUCOSE 345 MG/DL (70-104); POTASSIUM 5.2 MMOL/L (3.5-5.1); SODIUM 143 MMOL/L (135-145); TOTAL CARBON DIOXIDE 17.6 MMOL/L (24-32)
[2023-06-28 03:54] LABS: ALANINE AMINOTRANSFERASE 13 U/L (12-78); ALBUMIN 1.4 G/DL (3.4-5.0); ALBUMIN/GLOBULIN RATIO 0.3 (1.1-1.5); ALKALINE PHOSPHATASE 211 IU/L (46-116); ASPARTATE AMINO TRANSFERASE 23 U/L (10-37); BILIRUBIN,TOTAL 0.2 MG/DL (0.1-1.0); CALCIUM 8.6 MG/DL (8.5-10.1); MAGNESIUM 2.1 MG/DL (1.5-2.4); PHOSPHORUS 4.4 MG/DL (2.3-4.5); TOTAL PROTEIN 5.9 G/DL (6.4-8.2); eCRCL 25 ML/MIN; eGFR 21 ML/MIN
[2023-06-29] VITALS (43 sets, daily range): BP systolic 94–149; BP diastolic 47–69; PULSE 61–73; RESP 18–26; O2SAT 9–98
[2023-06-29 02:20] LABS: BASOPHILS % (AUTO) 0.4 % (0-1); EOSINOPHILS # (AUTO) 0.5 X10'3 (0-0.9); EOSINOPHILS % (AUTO) 4.8 % (0-6); HEMOGLOBIN 7.5 g/dl (14.0-17.9); LYMPHOCYTES # (AUTO) 1.3 X10'3 (1.1-4.8); LYMPHOCYTES % (AUTO) 11.7 % (21-51); MEAN CORPUSCULAR HEMOGLOBIN 31.1 PG (27.0-31.0); MEAN CORPUSCULAR HGB CONC 31.4 g/dL (33.0-36.5); MEAN CORPUSCULAR VOLUME 99.2 FL (78-98); MEAN PLATELET VOLUME 9.1 FL (7.4-10.4); MONOCYTES # (AUTO) 0.6 X10'3 (0-0.9); MONOCYTES % (AUTO) 5.4 % (2-12); NEUTROPHILS # (AUTO) 8.8 X10'3 (1.8-7.7); NEUTROPHILS % (AUTO) 77.7 % (42-75); PLATELET COUNT 508 X10'3 (140-440); RED BLOOD COUNT 2.42 X10'6 (4.70-6.10); RED CELL DISTRIBUTION WIDTH 14.9 % (11.5-14.5); WHITE BLOOD COUNT 11.3 X10'3 (4.5-11.0)
[2023-06-29 02:43] LABS: ALANINE AMINOTRANSFERASE 14 U/L (12-78); ALBUMIN 1.3 G/DL (3.4-5.0); ALBUMIN/GLOBULIN RATIO 0.3 (1.1-1.5); ALKALINE PHOSPHATASE 175 IU/L (46-116); ANION GAP 10 (8-16); ASPARTATE AMINO TRANSFERASE 14 U/L (10-37); BILIRUBIN,TOTAL 0.2 MG/DL (0.1-1.0); BLOOD UREA NITROGEN 94 MG/DL (7-18); BUN/CREATININE RATIO 31.4 (10.0-20.0); CALCIUM 8.9 MG/DL (8.5-10.1); CHLORIDE 117 MMOL/L (99-107); CREATININE 2.99 MG/DL (0.60-1.10); GLUCOSE 52 MG/DL (70-104); MAGNESIUM 2.2 MG/DL (1.5-2.4); PHOSPHORUS 4.6 MG/DL (2.3-4.5); POTASSIUM 5.3 MMOL/L (3.5-5.1); SODIUM 144 MMOL/L (135-145); TRIGLYCERIDES 56 MG/DL (20-135); eCRCL 26 ML/MIN; eGFR 22 ML/MIN
[2023-06-29 02:53] LABS: ABG BASE EXCESS -10.7 mmol/L (-2.0-2.0); ABG HCO3 14.5 mmol/L (22.0-26.0); ABG OXYGEN SATURATION 95.3 % (94-97); ABG PCO2 (T) 29.2 mmHg (35.0-48.0); ABG PH (T) 7.312 (7.340-7.440); ABG PO2 (T) 74.3 mmHg (75.0-100.0); ALLEN'S TEST Modified; FCOHb 0.3 % (0.0-3.9); FHHb 4.7 % (0.0-5.0); FMetHb 0.1 % (0.0-1.5); FO2Hb 94.9 % (94-97); MODE Vent-AC?PRVC; PATIENT TEMPERATURE 36.6; PEEP 5 cm H2O; RESPIRATORY RATE 24 b/min; TIDAL VOLUME 500 mL; TOTAL HEMOGLOBIN 8.2 G/dl (14.0-17.9)
[2023-06-29] MEDS: midodrine 5mg tablet PO SCH (11:36)
[2023-06-29 13:19] LABS: PREALBUMIN 19.4 MG/DL (19-36)
[2023-06-30] VITALS (41 sets, daily range): BP systolic 76–127; BP diastolic 42–79; PULSE 65–77; RESP 20–24; O2SAT 91–97
[2023-06-30 03:05] LABS: ABG BASE EXCESS -10.2 mmol/L (-2.0-2.0); ABG HCO3 14.9 mmol/L (22.0-26.0); ABG PCO2 (T) 30.1 mmHg (35.0-48.0); ABG PH (T) 7.314 (7.340-7.440); ABG PO2 (T) 110.9 mmHg (75.0-100.0); ALLEN'S TEST Modified; FCOHb 0.3 % (0.0-3.9); FMetHb 0.2 % (0.0-1.5); FO2Hb 97.5 % (94-97); MODE Vent-AC/PRVC; PATIENT TEMPERATURE 37.2; PEEP 5 cm H2O; RESPIRATORY RATE 24 b/min; TIDAL VOLUME 500 mL; TOTAL HEMOGLOBIN 8.4 G/dl (14.0-17.9)
[2023-06-30 03:10] LABS: BASOPHILS # (AUTO) 0.2 X10'3 (0-0.2); BASOPHILS % (AUTO) 1.9 % (0-1); EOSINOPHILS # (AUTO) 0.4 X10'3 (0-0.9); EOSINOPHILS % (AUTO) 4.5 % (0-6); HEMATOCRIT 22.5 % (42.0-52.0); HEMOGLOBIN 7.1 g/dl (14.0-17.9); LYMPHOCYTES # (AUTO) 1.1 X10'3 (1.1-4.8); LYMPHOCYTES % (AUTO) 11.3 % (21-51); MEAN CORPUSCULAR HEMOGLOBIN 31.4 PG (27.0-31.0); MEAN CORPUSCULAR HGB CONC 31.5 g/dL (33.0-36.5); MEAN CORPUSCULAR VOLUME 99.8 FL (78-98); MONOCYTES # (AUTO) 0.4 X10'3 (0-0.9); MONOCYTES % (AUTO) 4.1 % (2-12); NEUTROPHILS # (AUTO) 7.5 X10'3 (1.8-7.7); NEUTROPHILS % (AUTO) 78.2 % (42-75); PLATELET COUNT 485 X10'3 (140-440); RED BLOOD COUNT 2.26 X10'6 (4.70-6.10); RED CELL DISTRIBUTION WIDTH 15.5 % (11.5-14.5); WHITE BLOOD COUNT 9.6 X10'3 (4.5-11.0)
[2023-06-30 03:27] LABS: ALANINE AMINOTRANSFERASE 11 U/L (12-78); ALBUMIN 1.2 G/DL (3.4-5.0); ALBUMIN/GLOBULIN RATIO 0.3 (1.1-1.5); ALKALINE PHOSPHATASE 174 IU/L (46-116); ANION GAP 11 (8-16); ASPARTATE AMINO TRANSFERASE 12 U/L (10-37); BILIRUBIN,TOTAL 0.2 MG/DL (0.1-1.0); BLOOD UREA NITROGEN 93 MG/DL (7-18); CALCIUM 8.6 MG/DL (8.5-10.1); CHLORIDE 115 MMOL/L (99-107); GLUCOSE 262 MG/DL (70-104); PHOSPHORUS 4.9 MG/DL (2.3-4.5); SODIUM 142 MMOL/L (135-145); TOTAL CARBON DIOXIDE 16.4 MMOL/L (24-32); TOTAL PROTEIN 5.9 G/DL (6.4-8.2); eCRCL 26 ML/MIN; eGFR 22 ML/MIN
[2023-06-30 03:51] LABS: POTASSIUM 6.3 MMOL/L (3.5-5.1)
[2023-06-30 04:44] LABS: PLATELET ESTIMATE INCREASED; TOTAL CELLS COUNTED 100
[2023-06-30 04:46] LABS: LARGE PLATELETS FEW; POLYCHROMASIA FEW
[2023-06-30 04:47] LABS: HYPOCHROMASIA 1+; TEAR DROP CELLS FEW
[2023-06-30] MEDS: VANCOMYCIN LEVEL IV ONE (09:30)
[2023-06-30] MEDS: sodium polystyrene sulfonate 15gm/60ml oral suspension PO ONE (12:58)
[2023-06-30] MEDS: nystatin 15 GM powder TP SCH (19:56)
[2023-07-01] VITALS (39 sets, daily range): BP systolic 74–122; BP diastolic 39–64; PULSE 67–83; RESP 12–24; O2SAT 90–98
[2023-07-01 02:38] LABS: BASOPHILS # (AUTO) 0.1 X10'3 (0-0.2); BASOPHILS % (AUTO) 0.9 % (0-1); EOSINOPHILS # (AUTO) 0.7 X10'3 (0-0.9); EOSINOPHILS % (AUTO) 5.9 % (0-6); HEMATOCRIT 24.6 % (42.0-52.0); HEMOGLOBIN 7.6 g/dl (14.0-17.9); LYMPHOCYTES # (AUTO) 1.1 X10'3 (1.1-4.8); LYMPHOCYTES % (AUTO) 9.6 % (21-51); MEAN CORPUSCULAR HGB CONC 30.7 g/dL (33.0-36.5); MEAN CORPUSCULAR VOLUME 100.9 FL (78-98); MEAN PLATELET VOLUME 9.5 FL (7.4-10.4); MONOCYTES # (AUTO) 0.7 X10'3 (0-0.9); MONOCYTES % (AUTO) 5.9 % (2-12); NEUTROPHILS # (AUTO) 8.5 X10'3 (1.8-7.7); NEUTROPHILS % (AUTO) 77.7 % (42-75); PLATELET COUNT 561 X10'3 (140-440); RED BLOOD COUNT 2.44 X10'6 (4.70-6.10); RED CELL DISTRIBUTION WIDTH 15.4 % (11.5-14.5)
[2023-07-01 03:22] LABS: ALANINE AMINOTRANSFERASE 12 U/L (12-78); ALBUMIN 1.3 G/DL (3.4-5.0); ALBUMIN/GLOBULIN RATIO 0.3 (1.1-1.5); ALKALINE PHOSPHATASE 166 IU/L (46-116); ANION GAP 12 (8-16); ASPARTATE AMINO TRANSFERASE 13 U/L (10-37); BILIRUBIN,TOTAL 0.2 MG/DL (0.1-1.0); BLOOD UREA NITROGEN 87 MG/DL (7-18); BUN/CREATININE RATIO 31.6 (10.0-20.0); CALCIUM 8.5 MG/DL (8.5-10.1); CHLORIDE 117 MMOL/L (99-107); CREATININE 2.75 MG/DL (0.60-1.10); MAGNESIUM 2.2 MG/DL (1.5-2.4); POTASSIUM 5.8 MMOL/L (3.5-5.1); SODIUM 147 MMOL/L (135-145); TOTAL CARBON DIOXIDE 17.9 MMOL/L (24-32); TOTAL PROTEIN 5.4 G/DL (6.4-8.2); eCRCL 28 ML/MIN; eGFR 24 ML/MIN
[2023-07-01 03:28] LABS: GLUCOSE 40 MG/DL (70-104)
[2023-07-01 03:57] LABS: PREALBUMIN 27.7 MG/DL (19-36)
[2023-07-01 04:05] LABS: ABG BASE EXCESS -10.7 mmol/L (-2.0-2.0); ABG HCO3 14.5 mmol/L (22.0-26.0); ABG OXYGEN SATURATION 96.6 % (94-97); ABG PCO2 (T) 28.6 mmHg (35.0-48.0); ABG PH (T) 7.318 (7.340-7.440); ABG PO2 (T) 81.6 mmHg (75.0-100.0); ALLEN'S TEST Modified; FHHb 3.4 % (0.0-5.0); FMetHb 0.3 % (0.0-1.5); FO2Hb 96.3 % (94-97); MODE CMV PRVC IT 0.6; PATIENT TEMPERATURE 36.4; PEEP 5 cm H2O; RESPIRATORY RATE 24 b/min; TIDAL VOLUME 500 mL
[2023-07-01] MEDS ORDERED: LANSOPRAZOLE 30 MG/10 ML NG SCH (08:00)
[2023-07-01] MEDS: amiodarone 200mg tablet PEG SCH (08:14)
[2023-07-01] MEDS ORDERED: multi-vitamin w/minerals & ferrous gluconate 9 MG/15 ML oral LIQUID PO SCH (08:51)
[2023-07-01] MEDS ORDERED: MULTIVIT-MIN/FERROUS GLUCONATE 9 MG/15 ML LIQUID PO SCH (08:54)
[2023-07-01] MEDS: MULTIVIT-MIN/FERROUS GLUCONATE 9 MG/15 ML LIQUID PO SCH (08:55)
[2023-07-01] MEDS: sodium polystyrene sulfonate 15gm/60ml oral suspension PO ONE (13:14)
[2023-07-02] VITALS (41 sets, daily range): BP systolic 85–124; BP diastolic 46–69; PULSE 70–90; RESP 16–24; O2SAT 93–99
[2023-07-02 02:47] LABS: BASOPHILS # (AUTO) 0.1 X10'3 (0-0.2); BASOPHILS % (AUTO) 0.7 % (0-1); EOSINOPHILS # (AUTO) 0.6 X10'3 (0-0.9); EOSINOPHILS % (AUTO) 5.2 % (0-6); HEMATOCRIT 22.2 % (42.0-52.0); HEMOGLOBIN 7.2 g/dl (14.0-17.9); LYMPHOCYTES # (AUTO) 1.2 X10'3 (1.1-4.8); LYMPHOCYTES % (AUTO) 11.1 % (21-51); MEAN CORPUSCULAR HEMOGLOBIN 32.3 PG (27.0-31.0); MEAN CORPUSCULAR HGB CONC 32.4 g/dL (33.0-36.5); MEAN CORPUSCULAR VOLUME 99.5 FL (78-98); MEAN PLATELET VOLUME 9.3 FL (7.4-10.4); MONOCYTES # (AUTO) 0.7 X10'3 (0-0.9); MONOCYTES % (AUTO) 6.1 % (2-12); NEUTROPHILS # (AUTO) 8.3 X10'3 (1.8-7.7); NEUTROPHILS % (AUTO) 76.9 % (42-75); PLATELET COUNT 533 X10'3 (140-440); RED BLOOD COUNT 2.23 X10'6 (4.70-6.10); RED CELL DISTRIBUTION WIDTH 15.9 % (11.5-14.5); WHITE BLOOD COUNT 10.7 X10'3 (4.5-11.0)
[2023-07-02 03:04] LABS: ALANINE AMINOTRANSFERASE 15 U/L (12-78); ALBUMIN 1.5 G/DL (3.4-5.0); ALBUMIN/GLOBULIN RATIO 0.4 (1.1-1.5); ALKALINE PHOSPHATASE 165 IU/L (46-116); ANION GAP 13 (8-16); ASPARTATE AMINO TRANSFERASE 15 U/L (10-37); BILIRUBIN,TOTAL 0.2 MG/DL (0.1-1.0); BLOOD UREA NITROGEN 84 MG/DL (7-18); BUN/CREATININE RATIO 30.5 (10.0-20.0); CALCIUM 8.3 MG/DL (8.5-10.1); CHLORIDE 117 MMOL/L (99-107); CREATININE 2.75 MG/DL (0.60-1.10); GLUCOSE 56 MG/DL (70-104); MAGNESIUM 1.9 MG/DL (1.5-2.4); PHOSPHORUS 4.2 MG/DL (2.3-4.5); POTASSIUM 5.1 MMOL/L (3.5-5.1); SODIUM 146 MMOL/L (135-145); TOTAL CARBON DIOXIDE 16.5 MMOL/L (24-32); TOTAL PROTEIN 5.4 G/DL (6.4-8.2); TRIGLYCERIDES 99 MG/DL (20-135); eCRCL 28 ML/MIN; eGFR 24 ML/MIN
[2023-07-02 03:05] LABS: % IRON SATURATION 19 % (11-46); IRON 23 UG/DL (53-167); TOTAL IRON BINDING CAPACITY 120 UG/DL (259-388)
[2023-07-02 03:54] LABS: ABG BASE EXCESS -7.5 mmol/L (-2.0-2.0); ABG HCO3 17.4 mmol/L (22.0-26.0); ABG OXYGEN SATURATION 92.1 % (94-97); ABG PH (T) 7.341 (7.340-7.440); ABG PO2 (T) 66.4 mmHg (75.0-100.0); FCOHb 0.3 % (0.0-3.9); FHHb 7.9 % (0.0-5.0); FMetHb 0.3 % (0.0-1.5); FO2Hb 91.5 % (94-97); MODE VENT - PRVC; PATIENT TEMPERATURE 37.4; PEEP 5 cm H2O; RESPIRATORY RATE 24 b/min; TIDAL VOLUME 500 mL; TOTAL HEMOGLOBIN 7.4 G/dl (14.0-17.9)
[2023-07-02] MEDS: lansoprazole 15mg solutab NG SCH (08:42)
[2023-07-02] MEDS ORDERED: vancomycin inj 1,000 MG in normal saline 250ml IV soln 250 ML IV SCH (10:00)
[2023-07-02] MEDS: MULTIVIT-MIN/FERROUS GLUCONATE 9 MG/15 ML LIQUID PO SCH (18:48)
[2023-07-03] VITALS (40 sets, daily range): BP systolic 94–132; BP diastolic 50–74; PULSE 70–95; RESP 22–27; O2SAT 94–98
[2023-07-03 03:50] LABS: BASOPHILS # (AUTO) 0.1 X10'3 (0-0.2); BASOPHILS % (AUTO) 1.3 % (0-1); EOSINOPHILS # (AUTO) 0.9 X10'3 (0-0.9); EOSINOPHILS % (AUTO) 8.3 % (0-6); HEMATOCRIT 22.8 % (42.0-52.0); HEMOGLOBIN 7.1 g/dl (14.0-17.9); LYMPHOCYTES % (AUTO) 9.3 % (21-51); MEAN CORPUSCULAR HEMOGLOBIN 31.3 PG (27.0-31.0); MEAN CORPUSCULAR HGB CONC 31.3 g/dL (33.0-36.5); MEAN CORPUSCULAR VOLUME 100.1 FL (78-98); MEAN PLATELET VOLUME 9.3 FL (7.4-10.4); MONOCYTES # (AUTO) 0.8 X10'3 (0-0.9); MONOCYTES % (AUTO) 7.6 % (2-12); NEUTROPHILS # (AUTO) 7.9 X10'3 (1.8-7.7); NEUTROPHILS % (AUTO) 73.5 % (42-75); PLATELET COUNT 482 X10'3 (140-440); RED BLOOD COUNT 2.28 X10'6 (4.70-6.10); RED CELL DISTRIBUTION WIDTH 16.8 % (11.5-14.5); WHITE BLOOD COUNT 10.7 X10'3 (4.5-11.0)
[2023-07-03 03:53] LABS: ABG HCO3 18.2 mmol/L (22.0-26.0); ABG OXYGEN SATURATION 96.1 % (94-97); ABG PCO2 (T) 34.3 mmHg (35.0-48.0); ABG PH (T) 7.339 (7.340-7.440); FCOHb 0.3 % (0.0-3.9); FHHb 3.9 % (0.0-5.0); FMetHb 0.3 % (0.0-1.5); FO2Hb 95.5 % (94-97); MODE VENT - PRVC; PATIENT TEMPERATURE 36.5; PEEP 5 cm H2O; RESPIRATORY RATE 24 b/min; TIDAL VOLUME 500 mL; TOTAL HEMOGLOBIN 7.6 G/dl (14.0-17.9)
[2023-07-03 03:53] LABS: ALBUMIN 1.4 G/DL (3.4-5.0); ALBUMIN/GLOBULIN RATIO 0.3 (1.1-1.5); ALKALINE PHOSPHATASE 145 IU/L (46-116); ANION GAP 11 (8-16); ASPARTATE AMINO TRANSFERASE 15 U/L (10-37); BILIRUBIN,TOTAL 0.2 MG/DL (0.1-1.0); BLOOD UREA NITROGEN 75 MG/DL (7-18); BUN/CREATININE RATIO 28.1 (10.0-20.0); CALCIUM 8.6 MG/DL (8.5-10.1); CHLORIDE 115 MMOL/L (99-107); CREATININE 2.67 MG/DL (0.60-1.10); GLUCOSE 129 MG/DL (70-104); MAGNESIUM 1.9 MG/DL (1.5-2.4); PHOSPHORUS 4.7 MG/DL (2.3-4.5); POTASSIUM 4.5 MMOL/L (3.5-5.1); SODIUM 144 MMOL/L (135-145); TOTAL PROTEIN 5.9 G/DL (6.4-8.2); eCRCL 29 ML/MIN; eGFR 25 ML/MIN
[2023-07-03 03:58] LABS: ALANINE AMINOTRANSFERASE < 6 U/L (12-78)
[2023-07-04] VITALS (44 sets, daily range): BP systolic 86–123; BP diastolic 39–72; PULSE 70–97; RESP 20–26; O2SAT 82–98
[2023-07-04 03:15] LABS: BASOPHILS # (AUTO) 0.1 X10'3 (0-0.2); BASOPHILS % (AUTO) 0.9 % (0-1); EOSINOPHILS % (AUTO) 8.9 % (0-6); HEMATOCRIT 22.1 % (42.0-52.0); LYMPHOCYTES # (AUTO) 0.9 X10'3 (1.1-4.8); LYMPHOCYTES % (AUTO) 8.2 % (21-51); MEAN CORPUSCULAR HEMOGLOBIN 31.2 PG (27.0-31.0); MEAN CORPUSCULAR HGB CONC 31.3 g/dL (33.0-36.5); MEAN CORPUSCULAR VOLUME 99.6 FL (78-98); MEAN PLATELET VOLUME 8.7 FL (7.4-10.4); MONOCYTES # (AUTO) 0.7 X10'3 (0-0.9); MONOCYTES % (AUTO) 5.7 % (2-12); NEUTROPHILS # (AUTO) 8.6 X10'3 (1.8-7.7); NEUTROPHILS % (AUTO) 76.3 % (42-75); PLATELET COUNT 482 X10'3 (140-440); RED BLOOD COUNT 2.22 X10'6 (4.70-6.10); RED CELL DISTRIBUTION WIDTH 16.9 % (11.5-14.5); WHITE BLOOD COUNT 11.3 X10'3 (4.5-11.0)
[2023-07-04 03:27] LABS: ALANINE AMINOTRANSFERASE 7 U/L (12-78); ALBUMIN 1.5 G/DL (3.4-5.0); ALBUMIN/GLOBULIN RATIO 0.3 (1.1-1.5); ALKALINE PHOSPHATASE 155 IU/L (46-116); ANION GAP 13 (8-16); ASPARTATE AMINO TRANSFERASE 15 U/L (10-37); BILIRUBIN,TOTAL 0.3 MG/DL (0.1-1.0); BLOOD UREA NITROGEN 71 MG/DL (7-18); BUN/CREATININE RATIO 27.4 (10.0-20.0); CALCIUM 8.9 MG/DL (8.5-10.1); CHLORIDE 113 MMOL/L (99-107); CREATININE 2.59 MG/DL (0.60-1.10); GLUCOSE 129 MG/DL (70-104); MAGNESIUM 1.9 MG/DL (1.5-2.4); PHOSPHORUS 4.9 MG/DL (2.3-4.5); POTASSIUM 4.6 MMOL/L (3.5-5.1); SODIUM 145 MMOL/L (135-145); TOTAL CARBON DIOXIDE 18.6 MMOL/L (24-32); TOTAL PROTEIN 6.1 G/DL (6.4-8.2); eCRCL 29 ML/MIN; eGFR 26 ML/MIN
[2023-07-04 03:56] LABS: ABG BASE EXCESS -9.6 mmol/L (-2.0-2.0); ABG HCO3 15.7 mmol/L (22.0-26.0); ABG OXYGEN SATURATION 96.1 % (94-97); ABG PCO2 (T) 30.9 mmHg (35.0-48.0); ABG PO2 (T) 83.9 mmHg (75.0-100.0); FCOHb 0.3 % (0.0-3.9); FHHb 3.9 % (0.0-5.0); FMetHb 0.3 % (0.0-1.5); FO2Hb 95.5 % (94-97); MODE VENT - PRVC; PATIENT TEMPERATURE 36.5; PEEP 5 cm H2O; RESPIRATORY RATE 24 b/min; TIDAL VOLUME 500 mL; TOTAL HEMOGLOBIN 7.8 G/dl (14.0-17.9)
[2023-07-04 04:03] LABS: HEMOGLOBIN 6.9 g/dl (14.0-17.9)
[2023-07-04] MEDS ORDERED: LIDOcaine 1% w/EPI 1:100,000 inj. MDV 50 ML VIAL ONE (06:59)
[2023-07-04] MEDS ORDERED: LIDOcaine 1% (10mg/ml)w/preservative inj. 20ml MDV ONE (06:59)
[2023-07-04] MEDS ORDERED: BUPIVAcaine 2.5mg/ml inj 50ml vial (contains preservative) ONE (07:00)
[2023-07-04] MEDS ORDERED: rocuronium 10mg/ml inj IV ONE (08:07)
[2023-07-04] MEDS ORDERED: sevoflurane 250ml liquid IH ONE (08:14)
[2023-07-04] MEDS ORDERED: ePHEDrine 50MG/ML INJ. ONE (08:14)
[2023-07-04] MEDS ORDERED: ceFAZolin 1000mg inj ONE ×2 (08:46)
[2023-07-04] MEDS ORDERED: propofol inj 20 ML IV ONE (08:50)
[2023-07-04] MEDS: LIDOcaine 1% 30ml preserv. free vial IJ ONE (08:59)
[2023-07-04] MEDS: normal saline 1000ml 1,000 ML IV ONE (19:03)
[2023-07-04] MEDS: midodrine 5mg tablet PO ONE (19:57)
[2023-07-05] VITALS (43 sets, daily range): BP systolic 84–136; BP diastolic 50–76; PULSE 77–103; RESP 24–35; O2SAT 88–100
[2023-07-05 03:18] LABS: ALANINE AMINOTRANSFERASE 13 U/L (12-78); ALBUMIN 1.5 G/DL (3.4-5.0); ALBUMIN/GLOBULIN RATIO 0.3 (1.1-1.5); ALKALINE PHOSPHATASE 133 IU/L (46-116); ANION GAP 11 (8-16); ASPARTATE AMINO TRANSFERASE 14 U/L (10-37); BASOPHILS # (AUTO) 0.1 X10'3 (0-0.2); BILIRUBIN,TOTAL 0.2 MG/DL (0.1-1.0); BLOOD UREA NITROGEN 66 MG/DL (7-18); CALCIUM 8.5 MG/DL (8.5-10.1); CHLORIDE 112 MMOL/L (99-107); CREATININE 2.54 MG/DL (0.60-1.10); EOSINOPHILS # (AUTO) 0.7 X10'3 (0-0.9); GLUCOSE 96 MG/DL (70-104); HEMOGLOBIN 7.1 g/dl (14.0-17.9); MAGNESIUM 1.9 MG/DL (1.5-2.4); NEUTROPHILS # (AUTO) 8.6 X10'3 (1.8-7.7); PHOSPHORUS 4.9 MG/DL (2.3-4.5); POTASSIUM 4.5 MMOL/L (3.5-5.1); SODIUM 142 MMOL/L (135-145); TOTAL CARBON DIOXIDE 18.7 MMOL/L (24-32); TOTAL PROTEIN 6.1 G/DL (6.4-8.2); TRIGLYCERIDES 58 MG/DL (20-135); WHITE BLOOD COUNT 10.7 X10'3 (4.5-11.0); eCRCL 29 ML/MIN; eGFR 26 ML/MIN
[2023-07-05 03:20] LABS: EOSINOPHILS % (AUTO) 6.4 % (0-6); HEMATOCRIT 22.3 % (42.0-52.0); LYMPHOCYTES # (AUTO) 0.7 X10'3 (1.1-4.8); LYMPHOCYTES % (AUTO) 6.6 % (21-51); MEAN CORPUSCULAR HEMOGLOBIN 31.8 PG (27.0-31.0); MEAN CORPUSCULAR HGB CONC 31.8 g/dL (33.0-36.5); MEAN CORPUSCULAR VOLUME 100.1 FL (78-98); MEAN PLATELET VOLUME 8.9 FL (7.4-10.4); MONOCYTES # (AUTO) 0.7 X10'3 (0-0.9); MONOCYTES % (AUTO) 6.1 % (2-12); NEUTROPHILS % (AUTO) 79.9 % (42-75); PLATELET COUNT 442 X10'3 (140-440); RED BLOOD COUNT 2.23 X10'6 (4.70-6.10); RED CELL DISTRIBUTION WIDTH 17.2 % (11.5-14.5)
[2023-07-05 03:27] LABS: PREALBUMIN 15.4 MG/DL (19-36)
[2023-07-05 03:36] LABS: ABG BASE EXCESS -7.6 mmol/L (-2.0-2.0); ABG HCO3 16.7 mmol/L (22.0-26.0); ABG OXYGEN SATURATION 95.7 % (94-97); ABG PCO2 (T) 28.9 mmHg (35.0-48.0); ABG PH (T) 7.379 (7.340-7.440); ABG PO2 (T) 78.2 mmHg (75.0-100.0); FCOHb 0.3 % (0.0-3.9); FHHb 4.3 % (0.0-5.0); FMetHb 0.3 % (0.0-1.5); FO2Hb 95.1 % (94-97); MODE VENT - PRVC; PATIENT TEMPERATURE 36.8; PEEP 5 cm H2O; RESPIRATORY RATE 24 b/min; TIDAL VOLUME 500 mL; TOTAL HEMOGLOBIN 7.7 G/dl (14.0-17.9)
[2023-07-05 08:33] LABS: ANISOCYTOSIS 1+; ROULEAUX 2+; TOTAL CELLS COUNTED 100
[2023-07-05 08:38] LABS: PLATELET ESTIMATE INCREASED
[2023-07-05] MEDS: HYDROmorphone 1 mg/ml syringe IV PRN (18:53)
[2023-07-06] VITALS (43 sets, daily range): BP systolic 94–136; BP diastolic 47–77; PULSE 81–97; RESP 18–35; O2SAT 92–100
[2023-07-06 02:47] LABS: BASOPHILS # (AUTO) 0.2 X10'3 (0-0.2); BASOPHILS % (AUTO) 0.9 % (0-1); EOSINOPHILS # (AUTO) 0.1 X10'3 (0-0.9); EOSINOPHILS % (AUTO) 0.6 % (0-6); LYMPHOCYTES # (AUTO) 0.6 X10'3 (1.1-4.8); LYMPHOCYTES % (AUTO) 2.9 % (21-51); MEAN CORPUSCULAR HEMOGLOBIN 30.7 PG (27.0-31.0); MEAN CORPUSCULAR HGB CONC 30.9 g/dL (33.0-36.5); MEAN CORPUSCULAR VOLUME 99.2 FL (78-98); MEAN PLATELET VOLUME 8.9 FL (7.4-10.4); MONOCYTES # (AUTO) 1.1 X10'3 (0-0.9); MONOCYTES % (AUTO) 5.6 % (2-12); NEUTROPHILS # (AUTO) 17.9 X10'3 (1.8-7.7); PLATELET COUNT 399 X10'3 (140-440); RED BLOOD COUNT 2.22 X10'6 (4.70-6.10); RED CELL DISTRIBUTION WIDTH 17.3 % (11.5-14.5); WHITE BLOOD COUNT 19.9 X10'3 (4.5-11.0)
[2023-07-06 03:00] LABS: ALANINE AMINOTRANSFERASE 9 U/L (12-78); ALBUMIN 1.5 G/DL (3.4-5.0); ALBUMIN/GLOBULIN RATIO 0.3 (1.1-1.5); ALKALINE PHOSPHATASE 137 IU/L (46-116); ANION GAP 12 (8-16); ASPARTATE AMINO TRANSFERASE 8 U/L (10-37); BILIRUBIN,TOTAL 0.2 MG/DL (0.1-1.0); BLOOD UREA NITROGEN 66 MG/DL (7-18); BUN/CREATININE RATIO 23.7 (10.0-20.0); CALCIUM 8.5 MG/DL (8.5-10.1); CHLORIDE 109 MMOL/L (99-107); CREATININE 2.78 MG/DL (0.60-1.10); GLUCOSE 228 MG/DL (70-104); MAGNESIUM 1.8 MG/DL (1.5-2.4); POTASSIUM 4.6 MMOL/L (3.5-5.1); SODIUM 139 MMOL/L (135-145); TOTAL CARBON DIOXIDE 17.9 MMOL/L (24-32); TOTAL PROTEIN 6.2 G/DL (6.4-8.2); eCRCL 27 ML/MIN; eGFR 24 ML/MIN
[2023-07-06 03:01] LABS: HEMOGLOBIN 6.8 g/dl (14.0-17.9)
[2023-07-06 03:46] LABS: ABG BASE EXCESS -7.6 mmol/L (-2.0-2.0); ABG HCO3 16.7 mmol/L (22.0-26.0); ABG OXYGEN SATURATION 97.9 % (94-97); ABG PCO2 (T) 28.7 mmHg (35.0-48.0); ABG PH (T) 7.382 (7.340-7.440); ABG PO2 (T) 96.5 mmHg (75.0-100.0); FCOHb 0.3 % (0.0-3.9); FHHb 2.1 % (0.0-5.0); FMetHb 0.3 % (0.0-1.5); FO2Hb 97.3 % (94-97); MODE VENT - PRVC; PATIENT TEMPERATURE 36.8; PEEP 5 cm H2O; RESPIRATORY RATE 24 b/min; TIDAL VOLUME 500 mL; TOTAL HEMOGLOBIN 7.4 G/dl (14.0-17.9)
[2023-07-06] MEDS ORDERED: VANCOMYCIN LEVEL IV ONE (09:30)
[2023-07-06] MEDS: folic acid/vitamin B complex w/vitamin C 0.8mg tablet PO SCH (19:22)
[2023-07-07] VITALS (42 sets, daily range): BP systolic 93–148; BP diastolic 47–91; PULSE 68–130; RESP 16–32; O2SAT 93–99
[2023-07-07 02:48] LABS: BASOPHILS # (AUTO) 0.1 X10'3 (0-0.2); EOSINOPHILS # (AUTO) 0.1 X10'3 (0-0.9); EOSINOPHILS % (AUTO) 1.1 % (0-6); LYMPHOCYTES # (AUTO) 0.8 X10'3 (1.1-4.8); LYMPHOCYTES % (AUTO) 5.9 % (21-51); MEAN CORPUSCULAR HEMOGLOBIN 30.9 PG (27.0-31.0); MEAN CORPUSCULAR HGB CONC 31.5 g/dL (33.0-36.5); MEAN CORPUSCULAR VOLUME 98.3 FL (78-98); MEAN PLATELET VOLUME 8.8 FL (7.4-10.4); MONOCYTES # (AUTO) 1.2 X10'3 (0-0.9); MONOCYTES % (AUTO) 8.7 % (2-12); NEUTROPHILS # (AUTO) 11.5 X10'3 (1.8-7.7); NEUTROPHILS % (AUTO) 83.3 % (42-75); PLATELET COUNT 368 X10'3 (140-440); RED BLOOD COUNT 2.09 X10'6 (4.70-6.10); RED CELL DISTRIBUTION WIDTH 16.4 % (11.5-14.5); WHITE BLOOD COUNT 13.9 X10'3 (4.5-11.0)
[2023-07-07 03:11] LABS: ALANINE AMINOTRANSFERASE 8 U/L (12-78); ALBUMIN 1.4 G/DL (3.4-5.0); ALBUMIN/GLOBULIN RATIO 0.3 (1.1-1.5); ALKALINE PHOSPHATASE 132 IU/L (46-116); ANION GAP 11 (8-16); ASPARTATE AMINO TRANSFERASE 5 U/L (10-37); BILIRUBIN,TOTAL 0.2 MG/DL (0.1-1.0); BLOOD UREA NITROGEN 67 MG/DL (7-18); BUN/CREATININE RATIO 23.7 (10.0-20.0); CALCIUM 8.6 MG/DL (8.5-10.1); CHLORIDE 107 MMOL/L (99-107); CREATININE 2.83 MG/DL (0.60-1.10); GLUCOSE 259 MG/DL (70-104); MAGNESIUM 1.9 MG/DL (1.5-2.4); PHOSPHORUS 3.6 MG/DL (2.3-4.5); SODIUM 135 MMOL/L (135-145); TOTAL CARBON DIOXIDE 17.4 MMOL/L (24-32); TOTAL PROTEIN 6.1 G/DL (6.4-8.2); eCRCL 27 ML/MIN; eGFR 23 ML/MIN
[2023-07-07 03:19] LABS: HEMATOCRIT 20.6 % (42.0-52.0); HEMOGLOBIN 6.5 g/dl (14.0-17.9)
[2023-07-07 04:11] LABS: ABG BASE EXCESS -6.1 mmol/L (-2.0-2.0); ABG HCO3 17.6 mmol/L (22.0-26.0); ABG OXYGEN SATURATION 98.5 % (94-97); ABG PCO2 (T) 27.4 mmHg (35.0-48.0); ABG PH (T) 7.424 (7.340-7.440); ABG PO2 (T) 108.4 mmHg (75.0-100.0); FCOHb 0.3 % (0.0-3.9); FHHb 1.5 % (0.0-5.0); FMetHb 0.3 % (0.0-1.5); FO2Hb 97.9 % (94-97); MODE VENT - PRVC; PATIENT TEMPERATURE 36.7; PEEP 5 cm H2O; RESPIRATORY RATE 24 b/min; TIDAL VOLUME 500 mL; TOTAL HEMOGLOBIN 7.7 G/dl (14.0-17.9)
[2023-07-07] MEDS ORDERED: HYDROmorphone 1 mg/ml syringe IV PRN (08:50)
[2023-07-07] MEDS: EPOETIN ALFA-EPBX 20,000 UNIT/ML 1 ML MDV SQ SCH (09:32)
[2023-07-07] MEDS: sodium ferric gluc complex inj 125 MG in normal saline 100ml IV soln 100 ML IV SCH (09:33)
[2023-07-07] MEDS: HYDROmorphone 1 mg/ml syringe IV PRN (09:50)
[2023-07-07] MEDS: furosemide 10 MG/1 ML 10ml inj IV ONE (11:52)
[2023-07-07 17:19] LABS: HEMATOCRIT 22.7 % (42.0-52.0); HEMOGLOBIN 7.1 g/dl (14.0-17.9); MEAN CORPUSCULAR HEMOGLOBIN 30.4 PG (27.0-31.0); MEAN CORPUSCULAR HGB CONC 31.2 g/dL (33.0-36.5); MEAN CORPUSCULAR VOLUME 97.5 FL (78-98); MEAN PLATELET VOLUME 8.6 FL (7.4-10.4); PLATELET COUNT 395 X10'3 (140-440); RED BLOOD COUNT 2.33 X10'6 (4.70-6.10); RED CELL DISTRIBUTION WIDTH 16.7 % (11.5-14.5); WHITE BLOOD COUNT 12.8 X10'3 (4.5-11.0)
[2023-07-07] MEDS: HYDROcodone/acetaminophen 10/325mg tab PO PRN (20:49)
[2023-07-08] VITALS (39 sets, daily range): BP systolic 114–147; BP diastolic 42–86; PULSE 68–113; RESP 16–39; O2SAT 68–99
[2023-07-08] MEDS: heparin, porcine 5000 units/ml vial SQ SCH (05:00)
[2023-07-08] MEDS: midodrine 5mg tablet PO SCH (07:51)
[2023-07-08] MEDS: insulin glargine (Lantus) pen - multi-dose SQ SCH ×2 (09:33→20:25)
[2023-07-08] MEDS: furosemide 40mg/4ml inj IV ONE (10:19)
[2023-07-08] MEDS ORDERED: furosemide 40mg/4ml inj IV ONE (10:40)
[2023-07-08 14:15] LABS: CLARITY,URINE CLOUDY (Clear); COLOR,URINE STRAW (Yellow); PROTEIN,URINE 100 mg/dl (Neg); UA COLLECTION TYPE OTHER
[2023-07-08 14:16] LABS: BILIRUBIN,URINE NEGATIVE (Neg); GLUCOSE, URINE 250 mg/dl (Neg); KETONES,URINE NEGATIVE (Neg); LEUKOCYTE ESTERASE ,URINE LARGE (Neg); NITRITES, URINE NEGATIVE (Neg); OCCULT BLOOD,URINE MODERATE (Neg); UROBILINOGEN,URINE 0.2 E.U/dL (0.2-1.0)
[2023-07-08 14:57] LABS: TOTAL PROTEIN,URINE RANDOM 97.2 MG/DL
[2023-07-08 15:06] LABS: BACTERIA,URINE FEW /HPF (Neg); SQUAMOUS EPITHELIAL CELL,UR FEW /LPF (FEW); WBC,URINE TNTC /HPF (0-4)
[2023-07-08 15:07] LABS: RBC,URINE 20-50 /HPF (0-2)
[2023-07-08 15:14] LABS: AMORPHOUS URATES 1+
[2023-07-08 18:55] LABS: UA EOSINOPHILS NO EOS /HPF
[2023-07-09] VITALS (41 sets, daily range): BP systolic 93–144; BP diastolic 55–82; PULSE 65–107; RESP 12–39; O2SAT 93–100
[2023-07-09 03:02] LABS: BASOPHILS # (AUTO) 0.1 X10'3 (0-0.2); BASOPHILS % (AUTO) 0.7 % (0-1); EOSINOPHILS # (AUTO) 0.4 X10'3 (0-0.9); EOSINOPHILS % (AUTO) 4.2 % (0-6); HEMATOCRIT 22.7 % (42.0-52.0); HEMOGLOBIN 7.3 g/dl (14.0-17.9); LYMPHOCYTES # (AUTO) 0.9 X10'3 (1.1-4.8); LYMPHOCYTES % (AUTO) 9.7 % (21-51); MEAN CORPUSCULAR HEMOGLOBIN 30.6 PG (27.0-31.0); MEAN CORPUSCULAR VOLUME 95.8 FL (78-98); MEAN PLATELET VOLUME 8.8 FL (7.4-10.4); MONOCYTES # (AUTO) 0.9 X10'3 (0-0.9); NEUTROPHILS # (AUTO) 6.7 X10'3 (1.8-7.7); NEUTROPHILS % (AUTO) 75.4 % (42-75); PLATELET COUNT 382 X10'3 (140-440); RED BLOOD COUNT 2.37 X10'6 (4.70-6.10); RED CELL DISTRIBUTION WIDTH 15.5 % (11.5-14.5); WHITE BLOOD COUNT 8.9 X10'3 (4.5-11.0)
[2023-07-09 03:18] LABS: ALANINE AMINOTRANSFERASE 9 U/L (12-78); ALBUMIN 1.6 G/DL (3.4-5.0); ALBUMIN/GLOBULIN RATIO 0.3 (1.1-1.5); ALKALINE PHOSPHATASE 143 IU/L (46-116); ANION GAP 11 (8-16); ASPARTATE AMINO TRANSFERASE 11 U/L (10-37); BILIRUBIN,TOTAL 0.2 MG/DL (0.1-1.0); BLOOD UREA NITROGEN 65 MG/DL (7-18); CALCIUM 9.3 MG/DL (8.5-10.1); CHLORIDE 109 MMOL/L (99-107); CREATININE 2.82 MG/DL (0.60-1.10); GLUCOSE 130 MG/DL (70-104); PHOSPHORUS 2.8 MG/DL (2.3-4.5); POTASSIUM 3.6 MMOL/L (3.5-5.1); SODIUM 143 MMOL/L (135-145); TOTAL PROTEIN 6.8 G/DL (6.4-8.2); TRIGLYCERIDES 57 MG/DL (20-135); eCRCL 27 ML/MIN; eGFR 23 ML/MIN
[2023-07-09 03:28] LABS: ABG BASE EXCESS -1.8 mmol/L (-2.0-2.0); ABG HCO3 21.3 mmol/L (22.0-26.0); ABG OXYGEN SATURATION 95.5 % (94-97); ABG PCO2 (T) 28.7 mmHg (35.0-48.0); ABG PH (T) 7.487 (7.340-7.440); ABG PO2 (T) 72.7 mmHg (75.0-100.0); ALLEN'S TEST Modified; FCOHb 0.3 % (0.0-3.9); FHHb 4.5 % (0.0-5.0); FMetHb 0.4 % (0.0-1.5); FO2Hb 94.8 % (94-97); MODE AC/PRVC; PATIENT TEMPERATURE 36.7; PEEP 5 cm H2O; RESPIRATORY RATE 16 b/min; TIDAL VOLUME 500 mL; TOTAL HEMOGLOBIN 7.6 G/dl (14.0-17.9)
[2023-07-10] VITALS (41 sets, daily range): BP systolic 94–134; BP diastolic 55–81; PULSE 75–96; RESP 17–36; O2SAT 92–100
[2023-07-10 03:19] LABS: ABG BASE EXCESS -1.3 mmol/L (-2.0-2.0); ABG HCO3 20.9 mmol/L (22.0-26.0); ABG OXYGEN SATURATION 96.3 % (94-97); ABG PCO2 (T) 26.1 mmHg (35.0-48.0); ABG PH (T) 7.522 (7.340-7.440); ABG PO2 (T) 78.3 mmHg (75.0-100.0); ALLEN'S TEST Modified; FCOHb 0.3 % (0.0-3.9); FHHb 3.7 % (0.0-5.0); FMetHb 0.3 % (0.0-1.5); FO2Hb 95.7 % (94-97); MODE Vent-AC PRVC; PEEP 5 cm H2O; RESPIRATORY RATE 16 b/min; TIDAL VOLUME 500 mL; TOTAL HEMOGLOBIN 8.6 G/dl (14.0-17.9)
[2023-07-10 03:42] LABS: ALANINE AMINOTRANSFERASE 11 U/L (12-78); ALBUMIN 1.7 G/DL (3.4-5.0); ALBUMIN/GLOBULIN RATIO 0.3 (1.1-1.5); ALKALINE PHOSPHATASE 148 IU/L (46-116); ANION GAP 8 (8-16); ASPARTATE AMINO TRANSFERASE 8 U/L (10-37); BASOPHILS # (AUTO) 0.1 X10'3 (0-0.2); BASOPHILS % (AUTO) 1.1 % (0-1); BILIRUBIN,TOTAL 0.2 MG/DL (0.1-1.0); BLOOD UREA NITROGEN 68 MG/DL (7-18); BUN/CREATININE RATIO 25.5 (10.0-20.0); CALCIUM 9.3 MG/DL (8.5-10.1); CHLORIDE 105 MMOL/L (99-107); CREATININE 2.67 MG/DL (0.60-1.10); EOSINOPHILS # (AUTO) 0.6 X10'3 (0-0.9); EOSINOPHILS % (AUTO) 7.4 % (0-6); GLUCOSE 236 MG/DL (70-104); HEMATOCRIT 23.2 % (42.0-52.0); HEMOGLOBIN 7.5 g/dl (14.0-17.9); LYMPHOCYTES # (AUTO) 0.9 X10'3 (1.1-4.8); LYMPHOCYTES % (AUTO) 12.2 % (21-51); MAGNESIUM 2.1 MG/DL (1.5-2.4); MEAN CORPUSCULAR HEMOGLOBIN 30.6 PG (27.0-31.0); MEAN CORPUSCULAR HGB CONC 32.1 g/dL (33.0-36.5); MEAN CORPUSCULAR VOLUME 95.3 FL (78-98); MEAN PLATELET VOLUME 8.9 FL (7.4-10.4); MONOCYTES # (AUTO) 0.8 X10'3 (0-0.9); MONOCYTES % (AUTO) 10.3 % (2-12); NEUTROPHILS # (AUTO) 5.3 X10'3 (1.8-7.7); PHOSPHORUS 2.8 MG/DL (2.3-4.5); PLATELET COUNT 392 X10'3 (140-440); POTASSIUM 3.5 MMOL/L (3.5-5.1); RED BLOOD COUNT 2.43 X10'6 (4.70-6.10); RED CELL DISTRIBUTION WIDTH 15.6 % (11.5-14.5); SODIUM 139 MMOL/L (135-145); TOTAL CARBON DIOXIDE 25.9 MMOL/L (24-32); WHITE BLOOD COUNT 7.6 X10'3 (4.5-11.0); eCRCL 29 ML/MIN; eGFR 25 ML/MIN
[2023-07-11] VITALS (42 sets, daily range): BP systolic 9–117; BP diastolic 45–70; PULSE 67–90; RESP 16–35; O2SAT 83–99
[2023-07-11 02:37] LABS: BASOPHILS # (AUTO) 0.1 X10'3 (0-0.2); EOSINOPHILS # (AUTO) 0.5 X10'3 (0-0.9); EOSINOPHILS % (AUTO) 6.2 % (0-6); HEMATOCRIT 23.3 % (42.0-52.0); HEMOGLOBIN 7.4 g/dl (14.0-17.9); LYMPHOCYTES % (AUTO) 13.3 % (21-51); MEAN CORPUSCULAR HEMOGLOBIN 30.5 PG (27.0-31.0); MEAN CORPUSCULAR HGB CONC 31.8 g/dL (33.0-36.5); MEAN CORPUSCULAR VOLUME 95.7 FL (78-98); MEAN PLATELET VOLUME 8.3 FL (7.4-10.4); MONOCYTES # (AUTO) 0.8 X10'3 (0-0.9); MONOCYTES % (AUTO) 10.7 % (2-12); NEUTROPHILS # (AUTO) 5.2 X10'3 (1.8-7.7); NEUTROPHILS % (AUTO) 68.8 % (42-75); PLATELET COUNT 406 X10'3 (140-440); RED BLOOD COUNT 2.43 X10'6 (4.70-6.10); RED CELL DISTRIBUTION WIDTH 15.6 % (11.5-14.5); WHITE BLOOD COUNT 7.5 X10'3 (4.5-11.0)
[2023-07-11 02:58] LABS: ALANINE AMINOTRANSFERASE 12 U/L (12-78); ALBUMIN 1.8 G/DL (3.4-5.0); ALBUMIN/GLOBULIN RATIO 0.3 (1.1-1.5); ALKALINE PHOSPHATASE 132 IU/L (46-116); ANION GAP 8 (8-16); ASPARTATE AMINO TRANSFERASE 10 U/L (10-37); BILIRUBIN,TOTAL 0.2 MG/DL (0.1-1.0); BLOOD UREA NITROGEN 72 MG/DL (7-18); BUN/CREATININE RATIO 26.6 (10.0-20.0); CALCIUM 9.2 MG/DL (8.5-10.1); CHLORIDE 105 MMOL/L (99-107); CREATININE 2.71 MG/DL (0.60-1.10); GLUCOSE 149 MG/DL (70-104); MAGNESIUM 2.2 MG/DL (1.5-2.4); PHOSPHORUS 3.6 MG/DL (2.3-4.5); POTASSIUM 3.9 MMOL/L (3.5-5.1); SODIUM 138 MMOL/L (135-145); eCRCL 28 ML/MIN; eGFR 24 ML/MIN
[2023-07-12] VITALS (43 sets, daily range): BP systolic 85–124; BP diastolic 49–66; PULSE 69–93; RESP 11–35; O2SAT 90–99
[2023-07-12 02:52] LABS: BASOPHILS # (AUTO) 0.1 X10'3 (0-0.2); BASOPHILS % (AUTO) 0.8 % (0-1); EOSINOPHILS # (AUTO) 0.4 X10'3 (0-0.9); EOSINOPHILS % (AUTO) 4.5 % (0-6); HEMATOCRIT 25.1 % (42.0-52.0); LYMPHOCYTES # (AUTO) 1.2 X10'3 (1.1-4.8); LYMPHOCYTES % (AUTO) 12.4 % (21-51); MEAN CORPUSCULAR HEMOGLOBIN 30.9 PG (27.0-31.0); MEAN CORPUSCULAR VOLUME 96.4 FL (78-98); MONOCYTES # (AUTO) 0.9 X10'3 (0-0.9); MONOCYTES % (AUTO) 9.3 % (2-12); NEUTROPHILS # (AUTO) 7.3 X10'3 (1.8-7.7); PLATELET COUNT 395 X10'3 (140-440); RED CELL DISTRIBUTION WIDTH 15.5 % (11.5-14.5)
[2023-07-12 03:09] LABS: ALANINE AMINOTRANSFERASE 12 U/L (12-78); ALBUMIN 1.8 G/DL (3.4-5.0); ALBUMIN/GLOBULIN RATIO 0.4 (1.1-1.5); ALKALINE PHOSPHATASE 140 IU/L (46-116); ANION GAP 10 (8-16); ASPARTATE AMINO TRANSFERASE 9 U/L (10-37); BILIRUBIN,TOTAL 0.3 MG/DL (0.1-1.0); BLOOD UREA NITROGEN 85 MG/DL (7-18); BUN/CREATININE RATIO 28.1 (10.0-20.0); CHLORIDE 103 MMOL/L (99-107); CREATININE 3.02 MG/DL (0.60-1.10); GLUCOSE 254 MG/DL (70-104); MAGNESIUM 2.4 MG/DL (1.5-2.4); PHOSPHORUS 3.6 MG/DL (2.3-4.5); POTASSIUM 4.1 MMOL/L (3.5-5.1); SODIUM 136 MMOL/L (135-145); TOTAL CARBON DIOXIDE 22.6 MMOL/L (24-32); TOTAL PROTEIN 6.9 G/DL (6.4-8.2); eCRCL 25 ML/MIN; eGFR 21 ML/MIN
[2023-07-12] MEDS: albumin (Human) 5% 250ml 250 ML IV ONE ×3 (04:07→04:09)
[2023-07-12] MEDS ORDERED: MIDO5TAB4 PO (09:56)
[2023-07-12] MEDS ORDERED: MULT9LIQ7 PO (09:56)
[2023-07-12] MEDS ORDERED: AMI200T PEG (09:56)
[2023-07-12] MEDS ORDERED: HYDROcodone/acetaminophen 7.5MG/325MG per 15ml UD CUP PO PRN (11:33)
[2023-07-12] MEDS: midodrine 5mg tablet PEG SCH (12:16)
[2023-07-12] MEDS: MULTIVIT-MIN/FERROUS GLUCONATE 9 MG/15 ML LIQUID PEG SCH (20:05)
[2023-07-12] MEDS: folic acid/vitamin B complex w/vitamin C 0.8mg tablet PEG SCH (20:05)
[2023-07-13] VITALS (40 sets, daily range): BP systolic 81–122; BP diastolic 44–67; PULSE 70–93; RESP 16–30; O2SAT 93–98
[2023-07-13 06:43] LABS: BASOPHILS # (AUTO) 0.1 X10'3 (0-0.2); BASOPHILS % (AUTO) 0.9 % (0-1); EOSINOPHILS # (AUTO) 0.6 X10'3 (0-0.9); EOSINOPHILS % (AUTO) 4.9 % (0-6); HEMATOCRIT 22.9 % (42.0-52.0); HEMOGLOBIN 7.4 g/dl (14.0-17.9); LYMPHOCYTES # (AUTO) 1.2 X10'3 (1.1-4.8); LYMPHOCYTES % (AUTO) 9.8 % (21-51); MEAN CORPUSCULAR HEMOGLOBIN 31.3 PG (27.0-31.0); MEAN CORPUSCULAR HGB CONC 32.3 g/dL (33.0-36.5); MEAN CORPUSCULAR VOLUME 97.1 FL (78-98); MONOCYTES # (AUTO) 1.1 X10'3 (0-0.9); MONOCYTES % (AUTO) 9.3 % (2-12); NEUTROPHILS # (AUTO) 9.1 X10'3 (1.8-7.7); NEUTROPHILS % (AUTO) 75.1 % (42-75); PLATELET COUNT 410 X10'3 (140-440); RED BLOOD COUNT 2.36 X10'6 (4.70-6.10); WHITE BLOOD COUNT 12.1 X10'3 (4.5-11.0)
[2023-07-13 06:47] LABS: ALANINE AMINOTRANSFERASE 10 U/L (12-78); ALBUMIN 2.2 G/DL (3.4-5.0); ALBUMIN/GLOBULIN RATIO 0.5 (1.1-1.5); ALKALINE PHOSPHATASE 135 IU/L (46-116); ANION GAP 10 (8-16); ASPARTATE AMINO TRANSFERASE 9 U/L (10-37); BILIRUBIN,TOTAL 0.2 MG/DL (0.1-1.0); BLOOD UREA NITROGEN 89 MG/DL (7-18); BUN/CREATININE RATIO 29.3 (10.0-20.0); CALCIUM 9.5 MG/DL (8.5-10.1); CHLORIDE 106 MMOL/L (99-107); CREATININE 3.04 MG/DL (0.60-1.10); GLUCOSE 138 MG/DL (70-104); MAGNESIUM 2.4 MG/DL (1.5-2.4); PHOSPHORUS 3.2 MG/DL (2.3-4.5); POTASSIUM 4.2 MMOL/L (3.5-5.1); SODIUM 142 MMOL/L (135-145); TOTAL CARBON DIOXIDE 26.4 MMOL/L (24-32); TOTAL PROTEIN 6.8 G/DL (6.4-8.2); eCRCL 19 ML/MIN; eGFR 21 ML/MIN
[2023-07-13] MEDS: HYDROcodone/acetaminophen 7.5MG/325MG per 15ml UD CUP PEG PRN (08:00)
[2023-07-14] VITALS (40 sets, daily range): BP systolic 104–140; BP diastolic 42–71; PULSE 72–93; RESP 16–33; O2SAT 30–98
[2023-07-15] VITALS (29 sets, daily range): BP systolic 89–134; BP diastolic 36–70; PULSE 76–94; RESP 16–31; O2SAT 93–98
[2023-07-15 06:16] LABS: BASOPHILS # (AUTO) 0.1 X10'3 (0-0.2); BASOPHILS % (AUTO) 0.4 % (0-1); EOSINOPHILS # (AUTO) 0.5 X10'3 (0-0.9); EOSINOPHILS % (AUTO) 3.6 % (0-6); HEMATOCRIT 23.7 % (42.0-52.0); HEMOGLOBIN 7.7 g/dl (14.0-17.9); LYMPHOCYTES % (AUTO) 7.6 % (21-51); MEAN CORPUSCULAR HEMOGLOBIN 31.8 PG (27.0-31.0); MEAN CORPUSCULAR HGB CONC 32.7 g/dL (33.0-36.5); MEAN CORPUSCULAR VOLUME 97.3 FL (78-98); MEAN PLATELET VOLUME 7.7 FL (7.4-10.4); MONOCYTES % (AUTO) 7.6 % (2-12); NEUTROPHILS # (AUTO) 10.9 X10'3 (1.8-7.7); NEUTROPHILS % (AUTO) 80.8 % (42-75); PLATELET COUNT 464 X10'3 (140-440); RED BLOOD COUNT 2.44 X10'6 (4.70-6.10); WHITE BLOOD COUNT 13.5 X10'3 (4.5-11.0)
[2023-07-15 07:04] LABS: ALANINE AMINOTRANSFERASE 12 U/L (12-78); ALBUMIN 2.2 G/DL (3.4-5.0); ALBUMIN/GLOBULIN RATIO 0.4 (1.1-1.5); ALKALINE PHOSPHATASE 140 IU/L (46-116); ANION GAP 8 (8-16); ASPARTATE AMINO TRANSFERASE 12 U/L (10-37); BILIRUBIN,TOTAL 0.2 MG/DL (0.1-1.0); BLOOD UREA NITROGEN 96 MG/DL (7-18); BUN/CREATININE RATIO 30.3 (10.0-20.0); CALCIUM 9.6 MG/DL (8.5-10.1); CHLORIDE 106 MMOL/L (99-107); CREATININE 3.17 MG/DL (0.60-1.10); GLUCOSE 125 MG/DL (70-104); POTASSIUM 4.7 MMOL/L (3.5-5.1); SODIUM 140 MMOL/L (135-145); TOTAL CARBON DIOXIDE 25.8 MMOL/L (24-32); TOTAL PROTEIN 7.4 G/DL (6.4-8.2); eCRCL 19 ML/MIN; eGFR 20 ML/MIN
[2023-07-15] MEDS: bisacodyl 10mg suppository rectal RC PRN (07:23)
[2023-07-15] MEDS: Neutra Phos packet PEG PRN (11:52)
== END 2023-07-15 19:12 | DRG 4 ==
LOC: ER 14:38 → ED HOLD 19:39 → CICU 2S 20:45
PROVIDERS: ADMIT Surgery; ATTEND Surgery
PROC: 5A1955Z Respiratory Ventilation, Greater than 96 Consecutive Hours (ICD-10-PCS; principal; 2023-06-17)
PROC: 05JYXZZ Inspection of Upper Vein, External Approach (ICD-10-PCS; 2023-06-17)
PROC: 06HY33Z Insertion of Infusion Device into Lower Vein, Percutaneous Approach (ICD-10-PCS; 2023-06-17)
PROC: 0W9B30Z Drainage of Left Pleural Cavity with Drainage Device, Percutaneous Approach (ICD-10-PCS; 2023-06-17)
PROC: 0W9B30Z Drainage of Left Pleural Cavity with Drainage Device, Percutaneous Approach (ICD-10-PCS; 2023-06-19)
PROC: 0BH17EZ Insertion of Endotracheal Airway into Trachea, Via Natural or Artificial Opening (ICD-10-PCS; 2023-06-26)
PROC: 5A1955Z Respiratory Ventilation, Greater than 96 Consecutive Hours (ICD-10-PCS; 2023-06-26)
PROC: 0W9B30Z Drainage of Left Pleural Cavity with Drainage Device, Percutaneous Approach (ICD-10-PCS; 2023-06-26)
PROC: 0W9B30Z Drainage of Left Pleural Cavity with Drainage Device, Percutaneous Approach (ICD-10-PCS; 2023-06-27)
PROC: 02HV33Z Insertion of Infusion Device into Superior Vena Cava, Percutaneous Approach (ICD-10-PCS; 2023-07-03)
PROC: 0B110F4 Bypass Trachea to Cutaneous with Tracheostomy Device, Open Approach (ICD-10-PCS; 2023-07-04)
PROC: 0BW1XFZ Revision of Tracheostomy Device in Trachea, External Approach (ICD-10-PCS; 2023-07-04)
PROC: 0BH17EZ Insertion of Endotracheal Airway into Trachea, Via Natural or Artificial Opening (ICD-10-PCS; 2023-07-07)
PROC: 05H933Z Insertion of Infusion Device into Right Brachial Vein, Percutaneous Approach (ICD-10-PCS; 2023-07-12)
PROC: B54MZZA Ultrasonography of Right Upper Extremity Veins, Guidance (ICD-10-PCS; 2023-07-12)
DX: A41.9 Sepsis, unspecified organism (principal); E43 Unspecified severe protein-calorie malnutrition; N17.0 Acute kidney failure with tubular necrosis; R65.21 Severe sepsis with septic shock; J18.9 Pneumonia, unspecified organism; G93.41 Metabolic encephalopathy; J96.21 Acute and chronic respiratory failure with hypoxia; J86.0 Pyothorax with fistula; B44.1 Other pulmonary aspergillosis; I48.92 Unspecified atrial flutter; Z68.1 Body mass index [BMI] 19.9 or less, adult; E87.20 Acidosis, unspecified; N13.6 Pyonephrosis; E87.0 Hyperosmolality and hypernatremia; E87.3 Alkalosis; J93.82 Other air leak; Z66 Do not resuscitate; D63.1 Anemia in chronic kidney disease; D51.9 Vitamin B12 deficiency anemia, unspecified; D50.9 Iron deficiency anemia, unspecified; N18.32 Chronic kidney disease, stage 3b; E10.22 Type 1 diabetes mellitus with diabetic chronic kidney disease; J98.2 Interstitial emphysema; E86.9 Volume depletion, unspecified; I48.0 Paroxysmal atrial fibrillation; E87.8 Other disorders of electrolyte and fluid balance, not elsewhere classified; Y84.8 Other medical procedures as the cause of abnormal reaction of the patient, or of later complication, without mention of misadventure at the time of the procedure; Y92.238 Other place in hospital as the place of occurrence of the external cause; J47.9 Bronchiectasis, uncomplicated; E10.649 Type 1 diabetes mellitus with hypoglycemia without coma; Z20.822 Contact with and (suspected) exposure to COVID-19
CPT/HCPCS: 36410; 36415; 36600; 70450; 71045; 71250; 74176; 76770; 76937; 80053; 80202; 81001; 82570; 82803; 82810; 82948; 83036; 83540; 83550; 83605; 83735; 83880; 84100; 84132; 84133; 84134; 84145; 84156; 84300; 84478; 84484; 85007; 85018; 85025; 85027; 86885; 87040; 87070; 87077; 87081; 87088; 87207; 87305; 87502; 87503; 87811; 93005; 94002; 94003; 94640; 94760; 94799; 96365; 96367; 97110; 97161; 97530; 97535; 99285; A4215; A4314; A4333; A4615; A4618; A4623; A4649; A5200; A6212; A6213; A6222; A6223; A6250; A6253; A6258; A6402; A6449; A7000; A7015; A7048; A7521; A9900; C1729; C1751; C1758; C9113; G0378; J0282; J0456; J0690; J0692; J0696; J1170; J1644; J1815; J1940; J2060; J2405; J2704; J2916; J3010; J3370; J3465; J3490; J7030; J7040; J7050; J7060; J7120; P9045; Q4081